=== PATIENT | male | born 1960 | race African-American/Black ===

== ENCOUNTER → 2016-09-27 | Outpatient (CLI) | payer OTHER ==
[~2016-09-27] MED LIST: ASPI81 PO; CACARB500 PO; FOLI1CAP2 PO; FURO40 PO; HYDR-309 PO; HYDR50 PO; LABE200T PO; NIFE10 PO; NIFE60 PO; SEVEC800 PO; SUCR500T PO; VITAD1000 PO
[2016-09-27 19:03] LABS: CALCIUM, TOTAL 7.8 mg/dL (8.8-10.5); CREATININE 3.26 mg/dL (0.60-1.30); PHOSPHORUS 4.3 mg/dL (2.5-4.9); POTASSIUM 3.9 mmol/L (3.5-5.1)
== END | disposition home or self-care (01) ==
LOC: LABMN 18:06
PROVIDERS: ATTEND Internal Medicine Endocrinology, Diabetes & Metabolism
DX: I12.9 Hypertensive chronic kidney disease with stage 1 through stage 4 chronic kidney disease, or unspecified chronic kidney disease (principal); N18.4 Chronic kidney disease, stage 4 (severe); N13.2 Hydronephrosis with renal and ureteral calculous obstruction; R60.0 Localized edema
CPT/HCPCS: 82728; 83540; 83550; 83970

== ENCOUNTER 2016-09-28 19:25 | Inpatient (IN) | payer MEDICAID, OTHER ==
[~2016-09-28] VITALS: Ht 177.8 cm; Wt 84.0 kg
[~2016-09-28 19:25] MED LIST changes: -NIFE60 PO; -SUCR500T PO
[2016-09-28] MEDS ORDERED: SUCR500T PO (19:40)
[2016-09-28] MEDS ORDERED: VITAD1000 PO (19:40)
[2016-09-28 19:42] LABS: GLUCOSE,POINT OF CARE 77 MG/DL (70-110)
[2016-09-28] MEDS ORDERED: CloNIDine HCL 0.2 MG TABLET PO ONE (21:15)
[2016-09-28 21:30] LABS: BASOPHILS # (AUTO) 0.03 K/uL (0.00-0.20); BASOPHILS % (AUTO) 0.7 % (0.0-2.0); EOSINOPHILS # (AUTO) 1.16 K/uL (0.00-0.70); HEMATOCRIT 29.1 % (41-53); HEMOGLOBIN 9.3 g/dL (13.5-17.5); LYMPHOCYTES # (AUTO) 0.8 K/uL (1.0-4.8); LYMPHOCYTES % (AUTO) 18.4 % (22.0-44.0); MEAN CORPUSCULAR HEMOGLOBIN 25.3 pg (26.0-34.0); MEAN CORPUSCULAR HGB CONC 32.1 G/dL (31.0-37.0); MEAN CORPUSCULAR VOLUME 79 fL (80-100); MONOCYTES # (AUTO) 0.4 K/uL (0.1-1.0); MONOCYTES % (AUTO) 8.3 % (2.0-9.0); NEUTROPHILS # (AUTO) 2.1 K/uL (1.8-7.7); NEUTROPHILS % (AUTO) 46.6 % (40.0-70.0); PLATELET COUNT (AUTO) 199 K/uL (150-450); RED BLOOD CELL COUNT(AUTO) 3.69 MIL/uL (4.50-5.90); RED CELL DISTRIBUTION WIDTH 17.3 % (11.5-14.5); WHITE BLOOD COUNT (AUTO) 4.5 K/uL (4.5-11.0)
[2016-09-28 21:32] LABS: EOSINOPHILS % (AUTO) 25.96 % (1.0-6.0)
[2016-09-28 21:39] LABS: CALCIUM, TOTAL 8.1 mg/dL (8.8-10.5); CREATININE 3.08 mg/dL (0.60-1.30); POTASSIUM 3.8 mmol/L (3.5-5.1)
[2016-09-28 21:45] LABS: ALBUMIN 3.1 g/dL (3.4-5.0); BILIRUBIN,TOTAL 0.4 mg/dL (0.1-1.0)
[2016-09-28 21:59] LABS: RBC MORPHOLOGY COMMENT ABNORMAL RBC MORPH
[2016-09-28] MEDS ORDERED: LABETALOL HCL 5 MG/ML 20 ML VIAL IVP ONE (22:45)
[2016-09-28] MEDS ORDERED: MORPHINE SULFATE 4 MG/ML SYRINGE IVP ONE (23:15)
[2016-09-28] MEDS ORDERED: ONDANSETRON HCL 4 MG/2 ML VIAL IVP PRN ×2 (23:30→23:45)
[2016-09-28] MEDS ORDERED: ZOLPIDEM TARTRATE 10 MG TABLET PO PRN (23:30)
[2016-09-28] MEDS ORDERED: ACETAMINOPHEN 325 MG TABLET PO PRN ×2 (23:30→23:45)
[2016-09-28] MEDS: HEPARIN SODIUM,PORCINE 5,000 UNITS/ML VIAL SQ SCH (23:34)
[2016-09-28] MEDS ORDERED: 0.9% SODIUM CHLORIDE 10 ML SYRINGE IVP PRN (23:45)
[2016-09-29] MEDS: MORPHINE SULFATE 2 MG/ML SYRINGE IVP PRN ×3 (02:15→09:39)
[2016-09-29 06:43] LABS: BASOPHILS % (AUTO) 1.2 % (0.0-2.0); HEMATOCRIT 30.2 % (41-53); HEMOGLOBIN 9.4 g/dL (13.5-17.5); LYMPHOCYTES % (AUTO) 21.6 % (22.0-44.0); MEAN CORPUSCULAR HEMOGLOBIN 24.7 pg (26.0-34.0); MEAN CORPUSCULAR VOLUME 79 fL (80-100); MONOCYTES # (AUTO) 0.5 K/uL (0.1-1.0); MONOCYTES % (AUTO) 10.8 % (2.0-9.0); NEUTROPHILS # (AUTO) 1.8 K/uL (1.8-7.7); NEUTROPHILS % (AUTO) 39.1 % (40.0-70.0); PLATELET COUNT (AUTO) 200 K/uL (150-450); RED CELL DISTRIBUTION WIDTH 17.3 % (11.5-14.5); WHITE BLOOD COUNT (AUTO) 4.7 K/uL (4.5-11.0)
[2016-09-29 06:54] LABS: ALBUMIN 2.7 g/dL (3.4-5.0); BILIRUBIN,TOTAL 0.4 mg/dL (0.1-1.0); CREATININE 3.08 mg/dL (0.60-1.30); EOSINOPHILS % (AUTO) 27.3 % (1.0-6.0); POTASSIUM 3.7 mmol/L (3.5-5.1); TOTAL PROTEIN, SERUM 6.4 g/dL (6.4-8.2)
[2016-09-29 08:07] LABS: GLUCOSE,POINT OF CARE 83 MG/DL (70-110)
[2016-09-29 08:14] LABS: APPEARANCE,URINE CLEAR (CLEAR); GLUCOSE, URINE (UA) NEGATIVE (NEGATIVE); KETONES,URINE NEGATIVE (NEGATIVE); LEUKOCYTE ESTERASE ,URINE NEGATIVE (NEGATIVE); OCCULT BLOOD,URINE MODERATE (NEGATIVE); PROTEIN,URINE SEE CONFIRM (NEGATIVE)
[2016-09-29] MEDS: VITAMIN B COMP/VIT C/FOLIC ACID CAPSULE PO SCH (08:19)
[2016-09-29] MEDS: HydrALAZINE HCL 50 MG TABLET PO SCH ×3 (08:19→22:10)
[2016-09-29] MEDS: LABETALOL HCL 200 MG TABLET PO SCH ×3 (08:19→22:09)
[2016-09-29] MEDS: CHOLECALCIFEROL (VIT D3) 2,000 UNITS TABLET PO SCH (08:19)
[2016-09-29] MEDS: PANTOPRAZOLE SODIUM 40 MG DR TABLET PO SCH (08:20)
[2016-09-29] MEDS: SEVELAMER CARBONATE 800 MG TABLET PO SCH ×3 (08:20→18:38)
[2016-09-29] MEDS: ASPIRIN 81 MG CHEWABLE TABLET PO SCH (08:20)
[2016-09-29] MEDS: FUROSEMIDE 40 MG TABLET PO SCH ×2 (08:20→22:10)
[2016-09-29] MEDS: HEPARIN SODIUM,PORCINE 5,000 UNITS/ML VIAL SQ SCH ×2 (08:21→22:12)
[2016-09-29 08:35] LABS: WBC,URINE 0-2 /HPF (0-5)
[2016-09-29 08:36] LABS: SQUAMOUS EPITHELIAL CELL,UR Rare /LPF (None Seen); SULFOSALICYLIC ACID,URINE 3+ (Negative)
[2016-09-29 08:58] LABS: RBC MORPHOLOGY COMMENT ABNORMAL RBC MORPH
[2016-09-29] MEDS ORDERED: NIFEdipine 60 MG ER TABLET PO SCH (09:00)
[2016-09-29] MEDS ORDERED: NIFE60TA71 PO (10:47)
[2016-09-29 13:16] LABS: GLUCOSE,POINT OF CARE 109 MG/DL (70-110)
[2016-09-29] MEDS: OxyCODONE HCL/ACETAMINOPHEN 5-325 MG TABLET PO PRN (13:41)
[2016-09-29] MEDS ORDERED: CloNIDine HCL 0.1 MG TABLET PO PRN (15:00)
[2016-09-29 16:37] LABS: GLUCOSE,POINT OF CARE 96 MG/DL (70-110)
[2016-09-29 18:01] VITALS: BP 142/81
[2016-09-29 19:28] VITALS: BP 128/73
[2016-09-29 23:28] VITALS: BP 128/76
[2016-09-29] MEDS: AmLODIPine BESYLATE 10 MG TABLET PO SCH (23:39)
[2016-09-30 04:36] VITALS: BP 112/76
[2016-09-30] MEDS: MORPHINE SULFATE 2 MG/ML SYRINGE IVP PRN ×4 (06:01→19:38)
[2016-09-30 06:12] LABS: BASOPHILS % (AUTO) 1.2 % (0.0-2.0); HEMATOCRIT 30.1 % (41-53); HEMOGLOBIN 9.5 g/dL (13.5-17.5); LYMPHOCYTES # (AUTO) 0.8 K/uL (1.0-4.8); LYMPHOCYTES % (AUTO) 16.6 % (22.0-44.0); MEAN CORPUSCULAR HEMOGLOBIN 25.2 pg (26.0-34.0); MEAN CORPUSCULAR HGB CONC 31.5 G/dL (31.0-37.0); MEAN CORPUSCULAR VOLUME 80 fL (80-100); MONOCYTES # (AUTO) 0.4 K/uL (0.1-1.0); NEUTROPHILS # (AUTO) 2.1 K/uL (1.8-7.7); PLATELET COUNT (AUTO) 204 K/uL (150-450); RED BLOOD CELL COUNT(AUTO) 3.77 MIL/uL (4.50-5.90); RED CELL DISTRIBUTION WIDTH 16.7 % (11.5-14.5); WHITE BLOOD COUNT (AUTO) 4.6 K/uL (4.5-11.0)
[2016-09-30 06:55] LABS: EOSINOPHILS % (AUTO) 28.2 % (1.0-6.0)
[2016-09-30 07:05] LABS: ALBUMIN 2.9 g/dL (3.4-5.0); BILIRUBIN,TOTAL 0.3 mg/dL (0.1-1.0); CALCIUM, TOTAL 7.9 mg/dL (8.8-10.5); CREATININE 3.28 mg/dL (0.60-1.30); POTASSIUM 3.9 mmol/L (3.5-5.1); TOTAL PROTEIN, SERUM 6.6 g/dL (6.4-8.2)
[2016-09-30 07:32] VITALS: BP 148/76
[2016-09-30] MEDS: ASPIRIN 81 MG CHEWABLE TABLET PO SCH (08:29)
[2016-09-30] MEDS: SEVELAMER CARBONATE 800 MG TABLET PO SCH ×3 (08:29→18:30)
[2016-09-30] MEDS: HydrALAZINE HCL 50 MG TABLET PO SCH ×3 (08:29→20:44)
[2016-09-30] MEDS: FUROSEMIDE 40 MG TABLET PO SCH ×2 (08:30→20:49)
[2016-09-30] MEDS: PANTOPRAZOLE SODIUM 40 MG DR TABLET PO SCH (08:31)
[2016-09-30] MEDS: CHOLECALCIFEROL (VIT D3) 2,000 UNITS TABLET PO SCH (08:31)
[2016-09-30] MEDS: AmLODIPine BESYLATE 10 MG TABLET PO SCH ×2 (08:31→20:46)
[2016-09-30] MEDS: LABETALOL HCL 200 MG TABLET PO SCH ×3 (08:31→20:44)
[2016-09-30] MEDS: VITAMIN B COMP/VIT C/FOLIC ACID CAPSULE PO SCH (08:32)
[2016-09-30] MEDS: HEPARIN SODIUM,PORCINE 5,000 UNITS/ML VIAL SQ SCH ×2 (08:32→20:45)
[2016-09-30] MEDS: OxyCODONE HCL/ACETAMINOPHEN 5-325 MG TABLET PO PRN (09:12)
[2016-09-30 11:56] VITALS: BP 146/78
[2016-09-30 15:32] VITALS: BP 159/88
[2016-09-30 19:27] VITALS: BP 145/78
[2016-09-30 23:35] VITALS: BP 140/72
[2016-10-01 03:29] VITALS: BP 143/81
[2016-10-01] MEDS: MORPHINE SULFATE 2 MG/ML SYRINGE IVP PRN ×2 (03:39→12:14)
[2016-10-01 06:37] LABS: ALBUMIN 2.7 g/dL (3.4-5.0); BILIRUBIN,TOTAL 0.3 mg/dL (0.1-1.0); CALCIUM, TOTAL 7.9 mg/dL (8.8-10.5); CREATININE 3.36 mg/dL (0.60-1.30); POTASSIUM 4.1 mmol/L (3.5-5.1); TOTAL PROTEIN, SERUM 6.2 g/dL (6.4-8.2)
[2016-10-01 07:13] LABS: BASOPHILS % (AUTO) 1.1 % (0.0-2.0); EOSINOPHILS % (AUTO) 22.8 % (1.0-6.0); HEMATOCRIT 28.9 % (41-53); LYMPHOCYTES # (AUTO) 0.8 K/uL (1.0-4.8); LYMPHOCYTES % (AUTO) 15.8 % (22.0-44.0); MEAN CORPUSCULAR HEMOGLOBIN 24.9 pg (26.0-34.0); MEAN CORPUSCULAR HGB CONC 31.2 G/dL (31.0-37.0); MEAN CORPUSCULAR VOLUME 80 fL (80-100); MONOCYTES # (AUTO) 0.6 K/uL (0.1-1.0); MONOCYTES % (AUTO) 11.7 % (2.0-9.0); NEUTROPHILS # (AUTO) 2.4 K/uL (1.8-7.7); NEUTROPHILS % (AUTO) 48.6 % (40.0-70.0); PLATELET COUNT (AUTO) 202 K/uL (150-450); RED BLOOD CELL COUNT(AUTO) 3.63 MIL/uL (4.50-5.90)
[2016-10-01 08:03] VITALS: BP 157/69
[2016-10-01 08:07] LABS: RBC MORPHOLOGY COMMENT ABNORMAL RBC MORPH
[2016-10-01] MEDS: AmLODIPine BESYLATE 10 MG TABLET PO SCH (08:26)
[2016-10-01] MEDS: SEVELAMER CARBONATE 800 MG TABLET PO SCH ×2 (08:26→12:14)
[2016-10-01] MEDS: PANTOPRAZOLE SODIUM 40 MG DR TABLET PO SCH (08:26)
[2016-10-01] MEDS: FUROSEMIDE 40 MG TABLET PO SCH (08:27)
[2016-10-01] MEDS: VITAMIN B COMP/VIT C/FOLIC ACID CAPSULE PO SCH (08:27)
[2016-10-01] MEDS: LABETALOL HCL 200 MG TABLET PO SCH (08:27)
[2016-10-01] MEDS: ASPIRIN 81 MG CHEWABLE TABLET PO SCH (08:28)
[2016-10-01] MEDS: HydrALAZINE HCL 50 MG TABLET PO SCH (08:28)
[2016-10-01] MEDS: HEPARIN SODIUM,PORCINE 5,000 UNITS/ML VIAL SQ SCH (08:29)
[2016-10-01] MEDS: CHOLECALCIFEROL (VIT D3) 2,000 UNITS TABLET PO SCH (08:30)
[2016-10-01 11:35] VITALS: BP 145/74
== END 2016-10-01 14:35 | disposition home or self-care (01) | DRG 194 ==
LOC: EMS 19:26 → 5S 09-29 16:15
PROVIDERS: ADMIT Hospitalist; ATTEND Hospitalist
DX: I13.2 Hypertensive heart and chronic kidney disease with heart failure and with stage 5 chronic kidney disease, or end stage renal disease (principal); E11.22 Type 2 diabetes mellitus with diabetic chronic kidney disease; E44.0 Moderate protein-calorie malnutrition; N18.4 Chronic kidney disease, stage 4 (severe); N18.6 End stage renal disease; I20.0 Unstable angina; E88.09 Other disorders of plasma-protein metabolism, not elsewhere classified; I50.32 Chronic diastolic (congestive) heart failure; M48.06 Spinal stenosis, lumbar region; I16.1 Hypertensive emergency; D63.8 Anemia in other chronic diseases classified elsewhere; M47.896 Other spondylosis, lumbar region; Z68.26 Body mass index [BMI] 26.0-26.9, adult; Z79.82 Long term (current) use of aspirin
CPT/HCPCS: 72131; 72148; 74022; 76770; 82962; 93005; 96372; 96374; 96375; 96376; 99285; J1644; J2270; J3490

== ENCOUNTER 2016-10-27 12:20 | Inpatient (IN) | payer MEDICAID ==
[~2016-10-27] VITALS: Ht 182.9 cm; Wt 84.9 kg
[~2016-10-27 12:20] MED LIST changes: +HYDR-2924 PO; -HYDR50 PO; -NIFE10 PO; +SUCR500T PO
[2016-10-27 12:41] LABS: GLUCOSE,POINT OF CARE 127 MG/DL (70-110)
[2016-10-27] MEDS ORDERED: NIFE10 PO (12:44)
[2016-10-27] MEDS ORDERED: CloNIDine HCL 0.2 MG TABLET PO ONE (13:30)
[2016-10-27] MEDS ORDERED: NIFE60TA71 PO (13:33)
[2016-10-27 13:36] LABS: BASOPHILS % (AUTO) 0.6 % (0.0-2.0); HEMATOCRIT 33.3 % (41-53); HEMOGLOBIN 10.4 g/dL (13.5-17.5); LYMPHOCYTES # (AUTO) 0.9 K/uL (1.0-4.8); LYMPHOCYTES % (AUTO) 13.2 % (22.0-44.0); MEAN CORPUSCULAR HEMOGLOBIN 24.9 pg (26.0-34.0); MEAN CORPUSCULAR HGB CONC 31.2 G/dL (31.0-37.0); MEAN CORPUSCULAR VOLUME 80 fL (80-100); MONOCYTES # (AUTO) 0.5 K/uL (0.1-1.0); MONOCYTES % (AUTO) 8.2 % (2.0-9.0); NEUTROPHILS # (AUTO) 4.3 K/uL (1.8-7.7); PLATELET COUNT (AUTO) 192 K/uL (150-450); RED BLOOD CELL COUNT(AUTO) 4.17 MIL/uL (4.50-5.90); RED CELL DISTRIBUTION WIDTH 17.3 % (11.5-14.5); WHITE BLOOD COUNT (AUTO) 6.6 K/uL (4.5-11.0)
[2016-10-27 13:48] LABS: ANION GAP 12 mmol/L (8-16); CALCIUM, TOTAL 8.2 mg/dL (8.8-10.5); CARBON DIOXIDE 26 mmol/L (22-29); CHLORIDE 104 mmol/L (98-107); CREATININE 3.95 mg/dL (0.60-1.30); GLOMERULAR FILTR. RATE CALC 19 mL/min (>60); POTASSIUM 4.1 mmol/L (3.5-5.1); SODIUM SERUM 142 mmol/L (136-145); UREA NITROGEN, BLOOD 37 mg/dL (7-18)
[2016-10-27 13:50] LABS: PROTHROMBIN TIME 10.5 SEC (9.4-11.6)
[2016-10-27 14:03] LABS: B-TYPE NATRIURETIC PEPTIDE 1300 pg/mL (0-100)
[2016-10-27 14:12] LABS: ALANINE AMINOTRANSFERASE 60 U/L (12-78); ALBUMIN 3.2 g/dL (3.4-5.0); ASPARTATE AMINOTRANSFERASE 33 U/L (15-37); BILIRUBIN,TOTAL 0.5 mg/dL (0.1-1.0); CREATINE KINASE MB 2.7 ng/mL (0-5); CREATINE KINASE, TOTAL 419 U/L (39-308); TOTAL PROTEIN, SERUM 7.6 g/dL (6.4-8.2)
[2016-10-27] MEDS ORDERED: NITROGLYCERIN 2% (1 GM=INCH) PACKET TP ONE (15:00)
[2016-10-27] MEDS ORDERED: FUROSEMIDE 40 MG/4 ML VIAL IVP ONE (15:00)
[2016-10-27 15:01] LABS: APPEARANCE,URINE CLEAR (CLEAR); GLUCOSE, URINE (UA) NEGATIVE (NEGATIVE); KETONES,URINE NEGATIVE (NEGATIVE); LEUKOCYTE ESTERASE ,URINE NEGATIVE (NEGATIVE); OCCULT BLOOD,URINE MODERATE (NEGATIVE); PH,URINE 7.5 (5.0-8.0); PROTEIN,URINE SEE CONFIRM (NEGATIVE)
[2016-10-27] MEDS ORDERED: NITROPRUSSIDE SODIUM 50 MG in DEXTROSE 5%-WATER 248 ML IV PRN (15:15)
[2016-10-27 15:19] LABS: ADD UA MICROSCOPIC YES
[2016-10-27 15:27] LABS: SULFOSALICYLIC ACID,URINE 3+ (Negative)
[2016-10-27 15:28] LABS: WBC,URINE 0-2 /HPF (0-5)
[2016-10-27] MEDS ORDERED: BISACODYL 10 MG RECTAL RECTAL SUPPOSITORY PR PRN (15:45)
[2016-10-27] MEDS ORDERED: ACETAMINOPHEN 325 MG TABLET PO PRN (15:45)
[2016-10-27] MEDS ORDERED: MAGNESIUM HYDROXIDE SUSPENSION 30 ML UDCUP PO PRN (15:45)
[2016-10-27] MEDS ORDERED: ZOLPIDEM TARTRATE 5 MG TABLET PO PRN (15:45)
[2016-10-27] MEDS ORDERED: ONDANSETRON HCL 4 MG/2 ML VIAL IVP PRN (15:45)
[2016-10-27] MEDS ORDERED: MORPHINE SULFATE 2 MG/ML SYRINGE IVP PRN (15:45)
[2016-10-27] MEDS: HydrALAZINE HCL 50 MG TABLET PO SCH ×2 (16:23→20:50)
[2016-10-27] MEDS: LABETALOL HCL 200 MG TABLET PO SCH ×2 (16:28→22:20)
[2016-10-27] MEDS: HEPARIN SODIUM,PORCINE 5,000 UNITS/ML VIAL SQ SCH (16:52)
[2016-10-27] MEDS ORDERED: HYDROmorphone 2 MG/ML SYRINGE IVP ONE (17:15)
[2016-10-27] MEDS ORDERED: LABETALOL HCL 5 MG/ML 20 ML VIAL IVP ONE (17:15)
[2016-10-27 17:52] LABS: GLUCOSE,POINT OF CARE 103 MG/DL (70-110)
[2016-10-27] MEDS: SEVELAMER CARBONATE 800 MG TABLET PO SCH (18:50)
[2016-10-27] MEDS: HYDROCODONE/ACETAMINOPHEN 5-325 MG TABLET PO PRN (20:50)
[2016-10-27] MEDS: DOCUSATE SODIUM 100 MG CAPSULE PO SCH (20:50)
[2016-10-27] MEDS: FUROSEMIDE 40 MG/4 ML VIAL IVP SCH (20:52)
[2016-10-27 22:37] VITALS: BP 187/99
[2016-10-28] VITALS (7 sets, daily range): BP systolic 136–198; BP diastolic 72–108
[2016-10-28] MEDS: HEPARIN SODIUM,PORCINE 5,000 UNITS/ML VIAL SQ SCH ×3 (01:15→16:24)
[2016-10-28] MEDS: LABETALOL HCL 200 MG in DEXTROSE 5%-WATER 160 ML IV PRN ×4 (01:51→10:43)
[2016-10-28] MEDS: HYDROCODONE/ACETAMINOPHEN 5-325 MG TABLET PO PRN ×2 (02:11→13:10)
[2016-10-28 05:30] LABS: CALCIUM, TOTAL 7.8 mg/dL (8.8-10.5); CREATININE 3.79 mg/dL (0.60-1.30); PHOSPHORUS 4.4 mg/dL (2.5-4.9); POTASSIUM 4.1 mmol/L (3.5-5.1)
[2016-10-28] MEDS: FUROSEMIDE 40 MG/4 ML VIAL IVP SCH ×2 (06:28→20:57)
[2016-10-28] MEDS: DOCUSATE SODIUM 100 MG CAPSULE PO SCH ×2 (08:09→21:00)
[2016-10-28] MEDS: PANTOPRAZOLE SODIUM 40 MG DR TABLET PO SCH (08:09)
[2016-10-28] MEDS: SEVELAMER CARBONATE 800 MG TABLET PO SCH ×3 (08:09→16:24)
[2016-10-28] MEDS: CHOLECALCIFEROL (VIT D3) 1,000 UNITS TABLET PO SCH (08:10)
[2016-10-28] MEDS: ASPIRIN 81 MG CHEWABLE TABLET PO SCH (08:10)
[2016-10-28] MEDS: HydrALAZINE HCL 50 MG TABLET PO SCH ×3 (08:13→20:56)
[2016-10-28] MEDS ORDERED: NIFEdipine 60 MG ER TABLET PO SCH (09:00)
[2016-10-28] MEDS ORDERED: SUCROFERRIC OXYHYDROXIDE 500 MG CHEW SCH (09:00)
[2016-10-28] MEDS: AmLODIPine BESYLATE 10 MG TABLET PO SCH (10:40)
[2016-10-28] MEDS: LABETALOL HCL 200 MG TABLET PO SCH (16:24)
[2016-10-29] VITALS (9 sets, daily range): BP systolic 125–173; BP diastolic 71–89
[2016-10-29] MEDS: LABETALOL HCL 200 MG TABLET PO SCH ×4 (00:42→23:24)
[2016-10-29] MEDS: HEPARIN SODIUM,PORCINE 5,000 UNITS/ML VIAL SQ SCH ×4 (00:43→23:24)
[2016-10-29] MEDS: HYDROCODONE/ACETAMINOPHEN 5-325 MG TABLET PO PRN ×3 (01:07→20:13)
[2016-10-29 05:44] LABS: CALCIUM, TOTAL 7.9 mg/dL (8.8-10.5); CREATININE 4.08 mg/dL (0.60-1.30); PHOSPHORUS 5.4 mg/dL (2.5-4.9); POTASSIUM 3.8 mmol/L (3.5-5.1)
[2016-10-29 06:18] LABS: BASOPHILS % (AUTO) 1.1 % (0.0-2.0); HEMATOCRIT 29.9 % (41-53); HEMOGLOBIN 9.3 g/dL (13.5-17.5); LYMPHOCYTES # (AUTO) 0.9 K/uL (1.0-4.8); MEAN CORPUSCULAR HEMOGLOBIN 24.9 pg (26.0-34.0); MEAN CORPUSCULAR VOLUME 80 fL (80-100); MONOCYTES # (AUTO) 0.5 K/uL (0.1-1.0); MONOCYTES % (AUTO) 9.4 % (2.0-9.0); NEUTROPHILS # (AUTO) 2.8 K/uL (1.8-7.7); PLATELET COUNT (AUTO) 202 K/uL (150-450); RED BLOOD CELL COUNT(AUTO) 3.71 MIL/uL (4.50-5.90); RED CELL DISTRIBUTION WIDTH 16.6 % (11.5-14.5); WHITE BLOOD COUNT (AUTO) 5.4 K/uL (4.5-11.0)
[2016-10-29 06:45] LABS: EOSINOPHILS % (AUTO) 21.5 % (1.0-6.0)
[2016-10-29] MEDS: AmLODIPine BESYLATE 10 MG TABLET PO SCH (09:02)
[2016-10-29] MEDS: FUROSEMIDE 40 MG/4 ML VIAL IVP SCH ×2 (09:02→20:13)
[2016-10-29] MEDS: DOCUSATE SODIUM 100 MG CAPSULE PO SCH ×2 (09:02→20:13)
[2016-10-29] MEDS: PANTOPRAZOLE SODIUM 40 MG DR TABLET PO SCH (09:02)
[2016-10-29] MEDS: CHOLECALCIFEROL (VIT D3) 1,000 UNITS TABLET PO SCH (09:02)
[2016-10-29] MEDS: SEVELAMER CARBONATE 800 MG TABLET PO SCH ×3 (09:03→20:13)
[2016-10-29] MEDS: ASPIRIN 81 MG CHEWABLE TABLET PO SCH (09:03)
[2016-10-29] MEDS: HydrALAZINE HCL 50 MG TABLET PO SCH ×3 (09:04→20:12)
[2016-10-30 04:46] VITALS: BP 152/79
[2016-10-30 06:24] LABS: BASOPHILS % (AUTO) 1.2 % (0.0-2.0); HEMATOCRIT 30.7 % (41-53); HEMOGLOBIN 9.8 g/dL (13.5-17.5); LYMPHOCYTES # (AUTO) 0.8 K/uL (1.0-4.8); MEAN CORPUSCULAR HEMOGLOBIN 25.4 pg (26.0-34.0); MEAN CORPUSCULAR HGB CONC 31.7 G/dL (31.0-37.0); MEAN CORPUSCULAR VOLUME 80 fL (80-100); MONOCYTES # (AUTO) 0.5 K/uL (0.1-1.0); MONOCYTES % (AUTO) 9.7 % (2.0-9.0); NEUTROPHILS # (AUTO) 2.4 K/uL (1.8-7.7); NEUTROPHILS % (AUTO) 50.2 % (40.0-70.0); PLATELET COUNT (AUTO) 218 K/uL (150-450); RED BLOOD CELL COUNT(AUTO) 3.84 MIL/uL (4.50-5.90); RED CELL DISTRIBUTION WIDTH 16.6 % (11.5-14.5); WHITE BLOOD COUNT (AUTO) 4.8 K/uL (4.5-11.0)
[2016-10-30 07:11] LABS: CREATININE 3.98 mg/dL (0.60-1.30); PHOSPHORUS 5.6 mg/dL (2.5-4.9); POTASSIUM 3.8 mmol/L (3.5-5.1)
[2016-10-30 07:27] LABS: EOSINOPHILS % (AUTO) 21.9 % (1.0-6.0)
[2016-10-30 07:51] VITALS: BP 154/85
[2016-10-30] MEDS: SEVELAMER CARBONATE 800 MG TABLET PO SCH ×2 (09:00→12:34)
[2016-10-30] MEDS: AmLODIPine BESYLATE 10 MG TABLET PO SCH (09:00)
[2016-10-30] MEDS: HydrALAZINE HCL 50 MG TABLET PO SCH ×2 (09:00→15:48)
[2016-10-30] MEDS: LABETALOL HCL 200 MG TABLET PO SCH ×2 (09:00→15:48)
[2016-10-30] MEDS: CHOLECALCIFEROL (VIT D3) 1,000 UNITS TABLET PO SCH (09:00)
[2016-10-30] MEDS: HYDROCODONE/ACETAMINOPHEN 5-325 MG TABLET PO PRN (09:00)
[2016-10-30] MEDS: DOCUSATE SODIUM 100 MG CAPSULE PO SCH (09:00)
[2016-10-30] MEDS: PANTOPRAZOLE SODIUM 40 MG DR TABLET PO SCH (09:00)
[2016-10-30] MEDS: HEPARIN SODIUM,PORCINE 5,000 UNITS/ML VIAL SQ SCH ×2 (09:01→15:48)
[2016-10-30] MEDS: FUROSEMIDE 40 MG/4 ML VIAL IVP SCH (09:01)
[2016-10-30] MEDS: ASPIRIN 81 MG CHEWABLE TABLET PO SCH (09:01)
[2016-10-30 11:16] VITALS: BP 138/76
[2016-10-30] MEDS ORDERED: NIFE30TA5 PO (11:46)
[2016-10-30 16:13] VITALS: BP 136/76
== END 2016-10-30 19:00 | disposition home or self-care (01) | DRG 199 ==
LOC: EMS 12:22 → ICU 19:55 → 6N 10-29 13:35
PROVIDERS: ADMIT Internal Medicine; ATTEND Internal Medicine
DX: I16.0 Hypertensive urgency (principal); I50.33 Acute on chronic diastolic (congestive) heart failure; E11.22 Type 2 diabetes mellitus with diabetic chronic kidney disease; N18.6 End stage renal disease; E55.9 Vitamin D deficiency, unspecified; I13.0 Hypertensive heart and chronic kidney disease with heart failure and stage 1 through stage 4 chronic kidney disease, or unspecified chronic kidney disease; D64.9 Anemia, unspecified; R80.9 Proteinuria, unspecified; Z98.890 Other specified postprocedural states; Z79.84 Long term (current) use of oral hypoglycemic drugs; Z79.82 Long term (current) use of aspirin; Z79.899 Other long term (current) drug therapy; Z99.2 Dependence on renal dialysis
CPT/HCPCS: 70450; 82962; 83735; 84100; 87081; 93005; 96374; 96375; 99291; J1170; J1644; J1940; J2270; J3490; J7060

== ENCOUNTER → 2017-01-14 | Outpatient (CLI) | payer OTHER ==
[~2017-01-14] MED LIST changes: -CACARB500 PO; -FOLI1CAP2 PO; -HYDR-309 PO; +NIFE30TA5 PO
[2017-01-14 17:42] LABS: ADD UA MICROSCOPIC YES; APPEARANCE,URINE CLEAR (CLEAR); GLUCOSE, URINE (UA) NEGATIVE (NEGATIVE); KETONES,URINE NEGATIVE (NEGATIVE); LEUKOCYTE ESTERASE ,URINE NEGATIVE (NEGATIVE); OCCULT BLOOD,URINE NEGATIVE (NEGATIVE); PH,URINE 6.5 (5.0-8.0); PROTEIN,URINE SEE CONFIRM (NEGATIVE)
[2017-01-14 17:43] LABS: BASOPHILS # (AUTO) 0.03 K/uL (0.00-0.20); BASOPHILS % (AUTO) 0.5 % (0.0-2.0); EOSINOPHILS # (AUTO) 0.69 K/uL (0.00-0.70); EOSINOPHILS % (AUTO) 13.88 % (1.0-6.0); HEMATOCRIT 27.5 % (41-53); HEMOGLOBIN 8.6 g/dL (13.5-17.5); LYMPHOCYTES # (AUTO) 0.7 K/uL (1.0-4.8); LYMPHOCYTES % (AUTO) 13.2 % (22.0-44.0); MEAN CORPUSCULAR HEMOGLOBIN 25.6 pg (26.0-34.0); MEAN CORPUSCULAR HGB CONC 31.3 G/dL (31.0-37.0); MEAN CORPUSCULAR VOLUME 82 fL (80-100); MONOCYTES # (AUTO) 0.5 K/uL (0.1-1.0); MONOCYTES % (AUTO) 9.9 % (2.0-9.0); NEUTROPHILS # (AUTO) 3.1 K/uL (1.8-7.7); NEUTROPHILS % (AUTO) 62.5 % (40.0-70.0); PLATELET COUNT (AUTO) 191 K/uL (150-450); RED BLOOD CELL COUNT(AUTO) 3.36 MIL/uL (4.50-5.90); RED CELL DISTRIBUTION WIDTH 16.3 % (11.5-14.5)
[2017-01-14 17:50] LABS: ALBUMIN 3.1 g/dL (3.4-5.0); CALCIUM, TOTAL 8.3 mg/dL (8.8-10.5); CREATININE 4.61 mg/dL (0.60-1.30); PHOSPHORUS 4.3 mg/dL (2.5-4.9); POTASSIUM 4.2 mmol/L (3.5-5.1)
[2017-01-14 18:08] LABS: RBC,URINE 0-2 /HPF (0-2); SULFOSALICYLIC ACID,URINE 2+ (Negative); WBC,URINE 0-2 /HPF (0-5)
== END | disposition home or self-care (01) ==
LOC: LABPV 14:49
PROVIDERS: ATTEND Internal Medicine Endocrinology, Diabetes & Metabolism
DX: I12.9 Hypertensive chronic kidney disease with stage 1 through stage 4 chronic kidney disease, or unspecified chronic kidney disease (principal); N18.4 Chronic kidney disease, stage 4 (severe); N13.2 Hydronephrosis with renal and ureteral calculous obstruction; D63.1 Anemia in chronic kidney disease

== ENCOUNTER 2017-03-07 19:03 | Emergency (ER) | payer MEDICAID ==
[~2017-03-07] VITALS: Ht 172.7 cm; Wt 90.9 kg
[2017-03-07] MEDS ORDERED: FURO80 PO (19:58)
[2017-03-07] MEDS ORDERED: HYDR-2924 PO (19:58)
[2017-03-07] MEDS ORDERED: SODI454P2 PO (19:58)
[2017-03-07] MEDS ORDERED: HYDROCODONE/ACETAMINOPHEN 5-325 MG TABLET PO ONE ×2 (21:00→22:15)
[2017-03-07 21:15] LABS: BASOPHILS % (AUTO) 0.1 % (0.0-2.0); EOSINOPHILS # (AUTO) 0.54 K/uL (0.00-0.70); EOSINOPHILS % (AUTO) 10.43 % (1.0-6.0); HEMATOCRIT 26.1 % (41-53); HEMOGLOBIN 8.5 g/dL (13.5-17.5); LYMPHOCYTES # (AUTO) 0.6 K/uL (1.0-4.8); LYMPHOCYTES % (AUTO) 10.6 % (22.0-44.0); MEAN CORPUSCULAR HEMOGLOBIN 24.8 pg (26.0-34.0); MEAN CORPUSCULAR HGB CONC 32.3 G/dL (31.0-37.0); MEAN CORPUSCULAR VOLUME 77 fL (80-100); MONOCYTES # (AUTO) 0.5 K/uL (0.1-1.0); MONOCYTES % (AUTO) 9.5 % (2.0-9.0); NEUTROPHILS # (AUTO) 3.6 K/uL (1.8-7.7); NEUTROPHILS % (AUTO) 69.4 % (40.0-70.0); PLATELET COUNT (AUTO) 209 K/uL (150-450); RED CELL DISTRIBUTION WIDTH 17.1 % (11.5-14.5); WHITE BLOOD COUNT (AUTO) 5.2 K/uL (4.5-11.0)
[2017-03-07 21:22] LABS: CREATININE 4.65 mg/dL (0.60-1.30)
[2017-03-07 21:26] LABS: APPEARANCE,URINE CLEAR (CLEAR); GLUCOSE, URINE (UA) NEGATIVE (NEGATIVE); KETONES,URINE NEGATIVE (NEGATIVE); LEUKOCYTE ESTERASE ,URINE NEGATIVE (NEGATIVE); OCCULT BLOOD,URINE NEGATIVE (NEGATIVE); PH,URINE 7.5 (5.0-8.0); PROTEIN,URINE SEE CONFIRM (NEGATIVE)
[2017-03-07 21:31] LABS: RBC MORPHOLOGY COMMENT ABNORMAL RBC MORPH
[2017-03-07 21:37] LABS: RBC,URINE None Seen /HPF (0-2); SULFOSALICYLIC ACID,URINE 2+ (Negative); WBC,URINE 0-2 /HPF (0-5)
[2017-03-07 22:02] VITALS: BP 147/89
== END 2017-03-07 22:29 | disposition home or self-care (01) ==
LOC: EMS 19:06
DX: M54.5 Low back pain (principal); I12.9 Hypertensive chronic kidney disease with stage 1 through stage 4 chronic kidney disease, or unspecified chronic kidney disease; N18.9 Chronic kidney disease, unspecified; E11.22 Type 2 diabetes mellitus with diabetic chronic kidney disease; R60.0 Localized edema; Z79.82 Long term (current) use of aspirin; Z99.2 Dependence on renal dialysis; Z79.899 Other long term (current) drug therapy
CPT/HCPCS: 99284

== ENCOUNTER → 2017-05-13 | Outpatient (CLI) | payer OTHER ==
[~2017-05-13] MED LIST changes: +ASPI81TA33 PO; +FOLI1CAP2 PO; -FURO40 PO; +FURO80 PO; +ISOS30TA6 PO; +LABE100 PO; +NIFE90TA38 PO; -SEVEC800 PO; +SODI454P2 PO; +VALS160T2 PO; -VITAD1000 PO
[2017-05-13 11:42] LABS: HEMATOCRIT 23.3 % (41-53); HEMOGLOBIN 7.5 g/dL (13.5-17.5); MEAN CORPUSCULAR HEMOGLOBIN 23.4 pg (26.0-34.0); MEAN CORPUSCULAR VOLUME 73 fL (80-100); PLATELET COUNT (AUTO) 195 K/uL (150-450); RED BLOOD CELL COUNT(AUTO) 3.19 MIL/uL (4.50-5.90); RED CELL DISTRIBUTION WIDTH 18.6 % (11.5-14.5); WHITE BLOOD COUNT (AUTO) 4.8 K/uL (4.5-11.0)
[2017-05-13 11:43] LABS: ALBUMIN 2.9 g/dL (3.4-5.0); CALCIUM, TOTAL 8.2 mg/dL (8.8-10.5); CREATININE 5.29 mg/dL (0.60-1.30); PHOSPHORUS 4.7 mg/dL (2.5-4.9); POTASSIUM 4.4 mmol/L (3.5-5.1)
[2017-05-13 13:06] LABS: APPEARANCE,URINE CLEAR (CLEAR); GLUCOSE, URINE (UA) NEGATIVE (NEGATIVE); KETONES,URINE NEGATIVE (NEGATIVE); LEUKOCYTE ESTERASE ,URINE NEGATIVE (NEGATIVE); OCCULT BLOOD,URINE NEGATIVE (NEGATIVE); PH,URINE 7.5 (5.0-8.0); PROTEIN,URINE SEE CONFIRM (NEGATIVE)
[2017-05-13 13:44] LABS: BAND NEUTROPHILS % (MANUAL) 1 % (1-5); EOSINOPHILS % (MANUAL) 3 % (1-6); LYMPHOCYTES % (MANUAL) 16 % (22-44); RBC MORPHOLOGY COMMENT ABNORMAL R; TOTAL CELLS COUNTED 100
[2017-05-13 13:58] LABS: ADD UA MICROSCOPIC YES
[2017-05-13 13:59] LABS: RBC,URINE 0-2 /HPF (0-2); SULFOSALICYLIC ACID,URINE 3+ (Negative); WBC,URINE 0-2 /HPF (0-5)
[2017-05-13 14:00] LABS: SQUAMOUS EPITHELIAL CELL,UR Rare /LPF (None Seen)
== END | disposition home or self-care (01) ==
LOC: LABPV 09:55
PROVIDERS: ATTEND Hospitalist
DX: I12.9 Hypertensive chronic kidney disease with stage 1 through stage 4 chronic kidney disease, or unspecified chronic kidney disease (principal); N18.4 Chronic kidney disease, stage 4 (severe); N13.2 Hydronephrosis with renal and ureteral calculous obstruction; R60.0 Localized edema

== ENCOUNTER 2017-05-17 13:02 | Inpatient (IN) | payer MEDICAID ==
[~2017-05-17] VITALS: Ht 182.9 cm; Wt 81.4 kg
[~2017-05-17 13:02] MED LIST changes: -ASPI81TA33 PO; -FOLI1CAP2 PO; -ISOS30TA6 PO; -LABE100 PO; -NIFE90TA38 PO; -VALS160T2 PO
[2017-05-17] MEDS ORDERED: HYDR-2924 PO (13:18)
[2017-05-17 13:33] LABS: GLUCOSE,POINT OF CARE 149 MG/DL (70-110)
[2017-05-17 15:02] LABS: APPEARANCE,URINE CLEAR (CLEAR); GLUCOSE, URINE (UA) NEGATIVE (NEGATIVE); KETONES,URINE NEGATIVE (NEGATIVE); LEUKOCYTE ESTERASE ,URINE NEGATIVE (NEGATIVE); OCCULT BLOOD,URINE NEGATIVE (NEGATIVE); PH,URINE 7.5 (5.0-8.0); PROTEIN,URINE SEE CONFIRM (NEGATIVE)
[2017-05-17 15:06] LABS: ADD UA MICROSCOPIC YES
[2017-05-17 15:15] LABS: SQUAMOUS EPITHELIAL CELL,UR Few /LPF (None Seen); SULFOSALICYLIC ACID,URINE 2+ (Negative); WBC,URINE 0-2 /HPF (0-5)
[2017-05-17 15:20] LABS: EOSINOPHILS # (AUTO) 0.47 K/uL (0.00-0.70); EOSINOPHILS % (AUTO) 9.51 % (1.0-6.0); HEMATOCRIT 25.2 % (41-53); HEMOGLOBIN 7.7 g/dL (13.5-17.5); LYMPHOCYTES # (AUTO) 0.5 K/uL (1.0-4.8); LYMPHOCYTES % (AUTO) 10.1 % (22.0-44.0); MEAN CORPUSCULAR HEMOGLOBIN 22.4 pg (26.0-34.0); MEAN CORPUSCULAR HGB CONC 30.7 G/dL (31.0-37.0); MEAN CORPUSCULAR VOLUME 73 fL (80-100); MONOCYTES # (AUTO) 0.6 K/uL (0.1-1.0); MONOCYTES % (AUTO) 11.3 % (2.0-9.0); NEUTROPHILS # (AUTO) 3.4 K/uL (1.8-7.7); NEUTROPHILS % (AUTO) 69.1 % (40.0-70.0); PLATELET COUNT (AUTO) 210 K/uL (150-450); RED BLOOD CELL COUNT(AUTO) 3.45 MIL/uL (4.50-5.90); RED CELL DISTRIBUTION WIDTH 19.3 % (11.5-14.5)
[2017-05-17 15:32] LABS: CALCIUM, TOTAL 8.4 mg/dL (8.8-10.5); CREATININE 4.97 mg/dL (0.60-1.30)
[2017-05-17 15:35] LABS: INR 1.1 (0.9-1.1); PROTHROMBIN TIME 11.6 SEC (9.4-11.6)
[2017-05-17 15:38] LABS: ALBUMIN 2.7 g/dL (3.4-5.0); BILIRUBIN,TOTAL 0.6 mg/dL (0.1-1.0); TOTAL PROTEIN, SERUM 6.9 g/dL (6.4-8.2)
[2017-05-17 16:00] LABS: RBC MORPHOLOGY COMMENT ABNORMAL RBC MORPH
[2017-05-17] MEDS ORDERED: BUMETANIDE 0.25 MG/ML 10 ML VIAL IVP ONE (16:30)
[2017-05-17] MEDS ORDERED: HydrALAZINE HCL 20 MG/ML VIAL IVP ONE (19:30)
[2017-05-17] MEDS ORDERED: ONDANSETRON HCL 4 MG/2 ML VIAL IVP PRN (20:45)
[2017-05-17] MEDS ORDERED: BISACODYL 10 MG RECTAL RECTAL SUPPOSITORY PR PRN (20:45)
[2017-05-17] MEDS ORDERED: LABETALOL HCL 200 MG TABLET PO SCH (21:00)
[2017-05-17] MEDS ORDERED: CARVEDILOL 12.5 MG TABLET PO SCH (21:00)
[2017-05-17 21:20] VITALS: BP 192/112
[2017-05-17] MEDS: HYDROCODONE/ACETAMINOPHEN 5-325 MG TABLET PO PRN (21:46)
[2017-05-17] MEDS: DOCUSATE SODIUM 100 MG CAPSULE PO SCH (21:46)
[2017-05-17 23:37] VITALS: BP 201/90
[2017-05-18] MEDS: BUMETANIDE 0.25 MG/ML 10 ML VIAL IVP SCH ×4 (00:03→20:43)
[2017-05-18] MEDS: ZOLPIDEM TARTRATE 5 MG TABLET PO PRN ×2 (00:03→20:44)
[2017-05-18] MEDS: HEPARIN SODIUM,PORCINE 5,000 UNITS/ML VIAL SQ SCH ×4 (00:03→23:52)
[2017-05-18 04:43] VITALS: BP 200/100
[2017-05-18] MEDS: HydrALAZINE HCL 20 MG/ML VIAL IVP PRN ×2 (05:20→15:17)
[2017-05-18 06:57] VITALS: BP 179/95
[2017-05-18] MEDS: SEVELAMER CARBONATE 800 MG TABLET PO SCH ×3 (08:10→17:36)
[2017-05-18] MEDS: LABETALOL HCL 200 MG TABLET PO SCH ×3 (08:10→20:44)
[2017-05-18] MEDS: NIFEdipine 30 MG ER TABLET PO SCH (08:10)
[2017-05-18] MEDS: DOCUSATE SODIUM 100 MG CAPSULE PO SCH ×2 (08:10→20:44)
[2017-05-18] MEDS: PANTOPRAZOLE SODIUM 40 MG DR TABLET PO SCH (08:11)
[2017-05-18] MEDS: ASPIRIN 81 MG CHEWABLE TABLET PO SCH (08:11)
[2017-05-18] MEDS: ACETAMINOPHEN 325 MG TABLET PO PRN (08:11)
[2017-05-18 09:17] LABS: HEMATOCRIT 25.6 % (41-53); HEMOGLOBIN 8.1 g/dL (13.5-17.5); MEAN CORPUSCULAR HGB CONC 31.5 G/dL (31.0-37.0); MEAN CORPUSCULAR VOLUME 73 fL (80-100); PLATELET COUNT (AUTO) 230 K/uL (150-450); RED BLOOD CELL COUNT(AUTO) 3.52 MIL/uL (4.50-5.90); RED CELL DISTRIBUTION WIDTH 18.9 % (11.5-14.5); WHITE BLOOD COUNT (AUTO) 5.4 K/uL (4.5-11.0)
[2017-05-18 09:45] LABS: CALCIUM, TOTAL 8.3 mg/dL (8.8-10.5); CREATININE 4.77 mg/dL (0.60-1.30); PHOSPHORUS 4.2 mg/dL (2.5-4.9); POTASSIUM 3.9 mmol/L (3.5-5.1)
[2017-05-18] MEDS: EPOETIN ALFA 10,000 UNITS/ML VIAL SQ SCH (10:00)
[2017-05-18 10:07] LABS: LYMPHOCYTES % (MANUAL) 12 % (22-44); TOTAL CELLS COUNTED 100
[2017-05-18] MEDS ORDERED: BARIUM SULFATE 0.1% SUSPENSION 450 ML BOTTLE ONE (10:38)
[2017-05-18 10:46] VITALS: BP 183/95
[2017-05-18] MEDS: METOLAZONE 2.5 MG TABLET PO SCH ×2 (11:42→20:44)
[2017-05-18 15:00] VITALS: BP 174/90
[2017-05-18] MEDS: HYDROCODONE/ACETAMINOPHEN 5-325 MG TABLET PO PRN (15:11)
[2017-05-18] MEDS: MORPHINE SULFATE 2 MG/ML SYRINGE IVP PRN (17:46)
[2017-05-18 19:32] VITALS: BP 146/76
[2017-05-19 00:23] VITALS: BP 150/77
[2017-05-19 03:39] VITALS: BP 172/81
[2017-05-19 06:09] LABS: HEMATOCRIT 26.7 % (41-53); HEMOGLOBIN 8.2 g/dL (13.5-17.5); MEAN CORPUSCULAR HEMOGLOBIN 22.7 pg (26.0-34.0); MEAN CORPUSCULAR HGB CONC 30.8 G/dL (31.0-37.0); MEAN CORPUSCULAR VOLUME 74 fL (80-100); PLATELET COUNT (AUTO) 231 K/uL (150-450); RED BLOOD CELL COUNT(AUTO) 3.62 MIL/uL (4.50-5.90); WHITE BLOOD COUNT (AUTO) 5.1 K/uL (4.5-11.0)
[2017-05-19 06:10] LABS: CALCIUM, TOTAL 8.2 mg/dL (8.8-10.5); CREATININE 4.57 mg/dL (0.60-1.30); POTASSIUM 4.1 mmol/L (3.5-5.1)
[2017-05-19 07:02] VITALS: BP 174/91
[2017-05-19 07:46] LABS: EOSINOPHILS % (MANUAL) 1 % (1-6); LYMPHOCYTES % (MANUAL) 9 % (22-44); TOTAL CELLS COUNTED 100
[2017-05-19] MEDS: DOCUSATE SODIUM 100 MG CAPSULE PO SCH ×2 (08:24→20:02)
[2017-05-19] MEDS: PANTOPRAZOLE SODIUM 40 MG DR TABLET PO SCH (08:24)
[2017-05-19] MEDS: ASPIRIN 81 MG CHEWABLE TABLET PO SCH (08:24)
[2017-05-19] MEDS: LABETALOL HCL 200 MG TABLET PO SCH ×3 (08:24→20:01)
[2017-05-19] MEDS: HEPARIN SODIUM,PORCINE 5,000 UNITS/ML VIAL SQ SCH ×3 (08:24→23:22)
[2017-05-19] MEDS: BUMETANIDE 0.25 MG/ML 10 ML VIAL IVP SCH ×3 (08:25→20:02)
[2017-05-19] MEDS: SEVELAMER CARBONATE 800 MG TABLET PO SCH ×3 (08:25→18:22)
[2017-05-19] MEDS: METOLAZONE 2.5 MG TABLET PO SCH ×2 (09:46→20:02)
[2017-05-19] MEDS: NIFEdipine 30 MG ER TABLET PO SCH (09:46)
[2017-05-19] MEDS ORDERED: SODIUM CHLORIDE 0.9% 100 ML ONE (10:59)
[2017-05-19] MEDS: IRON SUCROSE COMPLEX 200 MG in SODIUM CHLORIDE 0.9% 100 ML IV SCH (11:10)
[2017-05-19 11:30] VITALS: BP 178/94
[2017-05-19 14:45] VITALS: BP 165/84
[2017-05-19 19:30] VITALS: BP 160/71
[2017-05-19] MEDS: ZOLPIDEM TARTRATE 5 MG TABLET PO PRN (20:02)
[2017-05-20 00:18] VITALS: BP 159/78
[2017-05-20 04:25] VITALS: BP 164/91
[2017-05-20 06:02] LABS: HEMATOCRIT 23.4 % (41-53); HEMOGLOBIN 7.5 g/dL (13.5-17.5); MEAN CORPUSCULAR HEMOGLOBIN 22.8 pg (26.0-34.0); MEAN CORPUSCULAR HGB CONC 31.9 G/dL (31.0-37.0); MEAN CORPUSCULAR VOLUME 71 fL (80-100); PLATELET COUNT (AUTO) 240 K/uL (150-450); RED BLOOD CELL COUNT(AUTO) 3.28 MIL/uL (4.50-5.90); RED CELL DISTRIBUTION WIDTH 18.8 % (11.5-14.5); WHITE BLOOD COUNT (AUTO) 4.8 K/uL (4.5-11.0)
[2017-05-20 06:03] LABS: CALCIUM, TOTAL 8.2 mg/dL (8.8-10.5); CREATININE 4.56 mg/dL (0.60-1.30); POTASSIUM 3.9 mmol/L (3.5-5.1)
[2017-05-20 07:20] VITALS: BP 165/85
[2017-05-20] MEDS: PANTOPRAZOLE SODIUM 40 MG DR TABLET PO SCH (08:12)
[2017-05-20] MEDS: ASPIRIN 81 MG CHEWABLE TABLET PO SCH (08:12)
[2017-05-20] MEDS: METOLAZONE 2.5 MG TABLET PO SCH ×2 (08:12→21:04)
[2017-05-20] MEDS: DOCUSATE SODIUM 100 MG CAPSULE PO SCH ×2 (08:12→21:04)
[2017-05-20] MEDS: LABETALOL HCL 100 MG TABLET PO SCH ×3 (08:12→21:04)
[2017-05-20] MEDS: CALCITRIOL 1 MCG/ML AMP IVP SCH (08:12)
[2017-05-20] MEDS: HEPARIN SODIUM,PORCINE 5,000 UNITS/ML VIAL SQ SCH ×2 (08:12→16:00)
[2017-05-20] MEDS: NIFEdipine 60 MG ER TABLET PO SCH (08:12)
[2017-05-20] MEDS: SEVELAMER CARBONATE 800 MG TABLET PO SCH ×3 (08:13→21:04)
[2017-05-20 08:49] LABS: BAND NEUTROPHILS % (MANUAL) 1 % (1-5); LYMPHOCYTES % (MANUAL) 10 % (22-44); TOTAL CELLS COUNTED 100
[2017-05-20 08:50] LABS: RBC MORPHOLOGY COMMENT ABNORMAL R
[2017-05-20] MEDS ORDERED: CALCITRIOL 1 MCG/ML AMP IVP SCH (09:00)
[2017-05-20] MEDS: BUMETANIDE 0.25 MG/ML 10 ML VIAL IVP SCH (09:05)
[2017-05-20] MEDS: IRON SUCROSE COMPLEX 200 MG in SODIUM CHLORIDE 0.9% 100 ML IV SCH (09:05)
[2017-05-20] MEDS: MAGNESIUM HYDROXIDE SUSPENSION 30 ML UDCUP PO PRN (09:07)
[2017-05-20 11:11] VITALS: BP 161/86
[2017-05-20] MEDS: HydrALAZINE HCL 20 MG/ML VIAL IVP PRN (12:06)
[2017-05-20] MEDS: HydrALAZINE HCL 25 MG TABLET PO SCH ×2 (16:00→21:04)
[2017-05-20 16:25] VITALS: BP 169/93
[2017-05-20] MEDS ORDERED: ALBUMIN HUMAN 25%-12.5GM/50ML IV BOTTLE IV ONE (16:57)
[2017-05-20] MEDS ORDERED: LIDOCAINE HCL/PF 1% 2 ML VIAL INJ ONE (16:57)
[2017-05-20] MEDS ORDERED: SODIUM CHLORIDE 0.9% 1,000 ML IV ONE (17:03)
[2017-05-20] MEDS ORDERED: ALBUMIN HUMAN 25%-12.5GM/50ML IV BOTTLE IV PRN (18:15)
[2017-05-20] MEDS ORDERED: MANNITOL 25%-12.5 GM/50 ML VIAL IVP PRN (18:15)
[2017-05-20] MEDS: LIDOCAINE HCL/PF 1% 2 ML VIAL ID PRN (18:20)
[2017-05-20] MEDS: ACETAMINOPHEN 325 MG TABLET PO PRN (18:46)
[2017-05-20 20:06] VITALS: BP 167/80
[2017-05-20] MEDS: FUROSEMIDE 80 MG TABLET PO SCH (21:04)
[2017-05-21] VITALS (10 sets, daily range): BP systolic 156–199; BP diastolic 75–103
[2017-05-21] MEDS: HEPARIN SODIUM,PORCINE 5,000 UNITS/ML VIAL SQ SCH ×3 (01:00→16:00)
[2017-05-21 06:48] LABS: HEMATOCRIT 25.1 % (41-53); MEAN CORPUSCULAR HEMOGLOBIN 23.2 pg (26.0-34.0); MEAN CORPUSCULAR HGB CONC 31.9 G/dL (31.0-37.0); MEAN CORPUSCULAR VOLUME 73 fL (80-100); PLATELET COUNT (AUTO) 248 K/uL (150-450); RED BLOOD CELL COUNT(AUTO) 3.46 MIL/uL (4.50-5.90); WHITE BLOOD COUNT (AUTO) 4.9 K/uL (4.5-11.0)
[2017-05-21 07:12] LABS: CALCIUM, TOTAL 8.1 mg/dL (8.8-10.5); CREATININE 3.77 mg/dL (0.60-1.30); MAGNESIUM 1.9 mg/dL (1.80-2.40); PHOSPHORUS 3.8 mg/dL (2.5-4.9); POTASSIUM 3.7 mmol/L (3.5-5.1)
[2017-05-21] MEDS: DOCUSATE SODIUM 100 MG CAPSULE PO SCH ×2 (09:00→20:20)
[2017-05-21 09:38] LABS: EOSINOPHILS % (MANUAL) 1 % (1-6); LYMPHOCYTES % (MANUAL) 11 % (22-44); TOTAL CELLS COUNTED 100
[2017-05-21 09:40] LABS: RBC MORPHOLOGY COMMENT ABNORMAL R
[2017-05-21] MEDS: LIDOCAINE HCL/PF 1% 2 ML VIAL ID PRN (10:20)
[2017-05-21] MEDS ORDERED: LIDOCAINE HCL/PF 1% 2 ML VIAL INJ ONE (12:00)
[2017-05-21] MEDS: SEVELAMER CARBONATE 800 MG TABLET PO SCH ×3 (12:00→18:12)
[2017-05-21] MEDS: PANTOPRAZOLE SODIUM 40 MG DR TABLET PO SCH (14:28)
[2017-05-21] MEDS: ASPIRIN 81 MG CHEWABLE TABLET PO SCH (14:28)
[2017-05-21] MEDS: FUROSEMIDE 80 MG TABLET PO SCH ×2 (14:29→20:20)
[2017-05-21] MEDS: METOLAZONE 2.5 MG TABLET PO SCH ×2 (14:29→20:20)
[2017-05-21] MEDS: NIFEdipine 60 MG ER TABLET PO SCH (14:30)
[2017-05-21] MEDS: LABETALOL HCL 100 MG TABLET PO SCH ×3 (14:31→20:20)
[2017-05-21] MEDS: HydrALAZINE HCL 25 MG TABLET PO SCH ×3 (14:33→20:20)
[2017-05-21] MEDS: IRON SUCROSE COMPLEX 200 MG in SODIUM CHLORIDE 0.9% 100 ML IV SCH (14:37)
[2017-05-21] MEDS: HYDROCODONE/ACETAMINOPHEN 5-325 MG TABLET PO PRN (17:01)
[2017-05-21] MEDS: HydrALAZINE HCL 20 MG/ML VIAL IVP PRN (17:01)
[2017-05-21] MEDS: ZOLPIDEM TARTRATE 5 MG TABLET PO PRN (20:20)
[2017-05-22] VITALS (8 sets, daily range): BP systolic 127–196; BP diastolic 59–111
[2017-05-22] MEDS: SEVELAMER CARBONATE 800 MG TABLET PO SCH ×3 (08:25→17:47)
[2017-05-22] MEDS: ASPIRIN 81 MG CHEWABLE TABLET PO SCH (08:26)
[2017-05-22] MEDS: DOCUSATE SODIUM 100 MG CAPSULE PO SCH ×2 (08:26→20:17)
[2017-05-22] MEDS: HEPARIN SODIUM,PORCINE 5,000 UNITS/ML VIAL SQ SCH ×3 (08:26→15:10)
[2017-05-22] MEDS: LABETALOL HCL 100 MG TABLET PO SCH ×3 (08:26→20:17)
[2017-05-22] MEDS: CALCITRIOL 1 MCG/ML AMP IVP SCH (08:26)
[2017-05-22] MEDS: FUROSEMIDE 80 MG TABLET PO SCH ×2 (08:27→20:18)
[2017-05-22] MEDS: PANTOPRAZOLE SODIUM 40 MG DR TABLET PO SCH (08:27)
[2017-05-22] MEDS: HydrALAZINE HCL 25 MG TABLET PO SCH ×3 (08:28→20:18)
[2017-05-22] MEDS: IRON SUCROSE COMPLEX 200 MG in SODIUM CHLORIDE 0.9% 100 ML IV SCH (10:58)
[2017-05-22] MEDS ORDERED: SODIUM CHLORIDE 0.9% 250 ML IV ONE (10:58)
[2017-05-22] MEDS ORDERED: HEPARIN SODIUM,PORCINE 1,000 UNITS/ML VIAL IVP ONE (12:00)
[2017-05-22] MEDS ORDERED: HEPARIN SODIUM,PORCINE 1,000 UNITS/ML 10 ML VIAL ONE (12:15)
[2017-05-22] MEDS ORDERED: LIDOCAINE HCL/PF 1% 30 ML VIAL ONE (12:15)
[2017-05-22] MEDS ORDERED: HEPARIN SODIUM 1000 UNITS/NS 500 ML ONE (12:16)
[2017-05-22] MEDS ORDERED: CeFAZolin 1 GM/DEXTROSE 50 ML IV ONE ×2 (13:23→13:50)
[2017-05-22] MEDS ORDERED: MIDAZOLAM HCL 2 MG/2 ML VIAL ONE (13:23)
[2017-05-22] MEDS ORDERED: FentaNYL CITRATE-PF 100 MCG/2 ML VIAL ONE (13:23)
[2017-05-22] MEDS ORDERED: MIDAZOLAM HCL 2 MG/2 ML VIAL IVP ONE (13:52)
[2017-05-22] MEDS ORDERED: FentaNYL CITRATE-PF 100 MCG/2 ML VIAL IVP ONE (13:53)
[2017-05-22] MEDS: METOLAZONE 2.5 MG TABLET PO SCH ×2 (15:10→20:17)
[2017-05-22] MEDS: NIFEdipine 90 MG ER TABLET PO SCH (15:10)
[2017-05-22] MEDS: HYDROCODONE/ACETAMINOPHEN 5-325 MG TABLET PO PRN ×2 (15:10→20:18)
[2017-05-22] MEDS: MAGNESIUM HYDROXIDE SUSPENSION 30 ML UDCUP PO PRN (15:10)
[2017-05-22] MEDS ORDERED: SODIUM CHLORIDE 0.9% 1,000 ML IV ONE (15:53)
[2017-05-22] MEDS ORDERED: MANNITOL 25%-12.5 GM/50 ML VIAL IVP PRN (16:00)
[2017-05-22] MEDS ORDERED: ALBUMIN HUMAN 25%-12.5GM/50ML IV BOTTLE IV PRN (16:00)
[2017-05-22] MEDS ORDERED: LIDOCAINE HCL/PF 1% 2 ML VIAL ID PRN (16:00)
[2017-05-22] MEDS: MORPHINE SULFATE 2 MG/ML SYRINGE IVP PRN (16:01)
[2017-05-22] MEDS: HydrALAZINE HCL 20 MG/ML VIAL IVP PRN (17:47)
[2017-05-22] MEDS: ZOLPIDEM TARTRATE 5 MG TABLET PO PRN (20:18)
[2017-05-23] MEDS: MORPHINE SULFATE 2 MG/ML SYRINGE IVP PRN ×4 (04:59→20:10)
[2017-05-23 05:04] VITALS: BP 160/83
[2017-05-23 07:17] VITALS: BP 169/86
[2017-05-23] MEDS: SEVELAMER CARBONATE 800 MG TABLET PO SCH ×3 (08:05→17:59)
[2017-05-23] MEDS: HEPARIN SODIUM,PORCINE 5,000 UNITS/ML VIAL SQ SCH ×3 (08:06→14:50)
[2017-05-23] MEDS: PANTOPRAZOLE SODIUM 40 MG DR TABLET PO SCH (09:43)
[2017-05-23] MEDS: METOLAZONE 2.5 MG TABLET PO SCH ×2 (09:43→20:10)
[2017-05-23] MEDS: NIFEdipine 90 MG ER TABLET PO SCH (09:43)
[2017-05-23] MEDS: ASPIRIN 81 MG CHEWABLE TABLET PO SCH (09:43)
[2017-05-23] MEDS: LABETALOL HCL 100 MG TABLET PO SCH ×3 (09:43→20:10)
[2017-05-23] MEDS: DOCUSATE SODIUM 100 MG CAPSULE PO SCH ×2 (09:43→20:10)
[2017-05-23] MEDS: FUROSEMIDE 80 MG TABLET PO SCH ×2 (09:43→20:10)
[2017-05-23] MEDS: HydrALAZINE HCL 25 MG TABLET PO SCH ×3 (09:43→20:10)
[2017-05-23] MEDS: IRON SUCROSE COMPLEX 200 MG in SODIUM CHLORIDE 0.9% 100 ML IV SCH (09:46)
[2017-05-23] MEDS ORDERED: HEPARIN SODIUM,PORCINE 1,000 UNITS/ML VIAL IVP ONE ×3 (11:00→12:00)
[2017-05-23 11:18] VITALS: BP 201/94
[2017-05-23] MEDS: VITAMIN B COMP/VIT C/FOLIC ACID CAPSULE PO SCH (14:50)
[2017-05-23] MEDS: HYDROCODONE/ACETAMINOPHEN 5-325 MG TABLET PO PRN ×2 (14:51→22:04)
[2017-05-23 14:52] VITALS: BP 188/99
[2017-05-23 19:49] VITALS: BP 179/99
[2017-05-23 21:55] VITALS: BP 176/94
[2017-05-23] MEDS: ZOLPIDEM TARTRATE 10 MG TABLET PO PRN (22:04)
[2017-05-23] MEDS: HydrALAZINE HCL 20 MG/ML VIAL IVP PRN (22:05)
[2017-05-24] VITALS (9 sets, daily range): BP systolic 112–194; BP diastolic 63–91
[2017-05-24] MEDS: HEPARIN SODIUM,PORCINE 5,000 UNITS/ML VIAL SQ SCH ×4 (00:11→23:20)
[2017-05-24] MEDS: HydrALAZINE HCL 20 MG/ML VIAL IVP PRN (06:41)
[2017-05-24 07:39] LABS: CALCIUM, TOTAL 7.6 mg/dL (8.8-10.5); CREATININE 2.86 mg/dL (0.60-1.30); MAGNESIUM 1.7 mg/dL (1.80-2.40); PHOSPHORUS 1.7 mg/dL (2.5-4.9); POTASSIUM 4.3 mmol/L (3.5-5.1)
[2017-05-24] MEDS: VITAMIN B COMP/VIT C/FOLIC ACID CAPSULE PO SCH (09:40)
[2017-05-24] MEDS: LABETALOL HCL 100 MG TABLET PO SCH ×3 (09:40→22:10)
[2017-05-24] MEDS: PANTOPRAZOLE SODIUM 40 MG DR TABLET PO SCH (09:40)
[2017-05-24] MEDS: MAGNESIUM HYDROXIDE SUSPENSION 30 ML UDCUP PO PRN (09:40)
[2017-05-24] MEDS: SEVELAMER CARBONATE 800 MG TABLET PO SCH ×3 (09:40→17:34)
[2017-05-24] MEDS: DOCUSATE SODIUM 100 MG CAPSULE PO SCH ×2 (09:40→20:09)
[2017-05-24] MEDS: HYDROCODONE/ACETAMINOPHEN 5-325 MG TABLET PO PRN ×2 (09:41→20:09)
[2017-05-24] MEDS: ASPIRIN 81 MG CHEWABLE TABLET PO SCH (09:44)
[2017-05-24] MEDS: CALCITRIOL 1 MCG/ML AMP IVP SCH (09:54)
[2017-05-24] MEDS ORDERED: HEPARIN SODIUM,PORCINE 1,000 UNITS/ML VIAL IVP ONE ×3 (12:00→17:00)
[2017-05-24] MEDS: FUROSEMIDE 80 MG TABLET PO SCH ×2 (13:17→20:09)
[2017-05-24] MEDS: NIFEdipine 90 MG ER TABLET PO SCH (13:17)
[2017-05-24] MEDS: METOLAZONE 2.5 MG TABLET PO SCH ×2 (13:17→22:10)
[2017-05-24] MEDS: HydrALAZINE HCL 25 MG TABLET PO SCH ×3 (13:17→20:09)
[2017-05-24] MEDS ORDERED: COLCHICINE 0.6 MG TABLET PO ONE (13:30)
[2017-05-24] MEDS: IBUPROFEN 600 MG TABLET PO SCH ×2 (16:41→22:10)
[2017-05-24 19:53] LABS: GLUCOSE,POINT OF CARE 116 MG/DL (70-110)
[2017-05-24] MEDS: ISOSORBIDE MONONITRATE 30 MG ER TABLET PO SCH (20:09)
[2017-05-24] MEDS: ZOLPIDEM TARTRATE 10 MG TABLET PO PRN (22:10)
[2017-05-25 04:31] VITALS: BP 127/80
[2017-05-25 06:25] LABS: EOSINOPHILS % (AUTO) 10.3 % (1.0-6.0); HEMATOCRIT 22.3 % (41-53); LYMPHOCYTES # (AUTO) 0.5 K/uL (1.0-4.8); LYMPHOCYTES % (AUTO) 10.6 % (22.0-44.0); MEAN CORPUSCULAR HEMOGLOBIN 23.1 pg (26.0-34.0); MEAN CORPUSCULAR HGB CONC 31.3 G/dL (31.0-37.0); MEAN CORPUSCULAR VOLUME 74 fL (80-100); MONOCYTES # (AUTO) 0.5 K/uL (0.1-1.0); MONOCYTES % (AUTO) 10.3 % (2.0-9.0); NEUTROPHILS # (AUTO) 3.6 K/uL (1.8-7.7); NEUTROPHILS % (AUTO) 68.8 % (40.0-70.0); PLATELET COUNT (AUTO) 213 K/uL (150-450); RED BLOOD CELL COUNT(AUTO) 3.02 MIL/uL (4.50-5.90); RED CELL DISTRIBUTION WIDTH 19.4 % (11.5-14.5); WHITE BLOOD COUNT (AUTO) 5.2 K/uL (4.5-11.0)
[2017-05-25 07:07] VITALS: BP 132/80
[2017-05-25] MEDS: IBUPROFEN 600 MG TABLET PO SCH ×3 (08:42→18:16)
[2017-05-25] MEDS: ASPIRIN 81 MG CHEWABLE TABLET PO SCH (08:42)
[2017-05-25] MEDS: SEVELAMER CARBONATE 800 MG TABLET PO SCH ×3 (08:42→18:16)
[2017-05-25] MEDS: HEPARIN SODIUM,PORCINE 5,000 UNITS/ML VIAL SQ SCH ×3 (08:43→23:33)
[2017-05-25] MEDS: METOLAZONE 2.5 MG TABLET PO SCH ×2 (09:00→20:06)
[2017-05-25] MEDS: LABETALOL HCL 100 MG TABLET PO SCH ×3 (09:00→21:00)
[2017-05-25 10:52] VITALS: BP 151/83
[2017-05-25] MEDS: PANTOPRAZOLE SODIUM 40 MG DR TABLET PO SCH (14:15)
[2017-05-25] MEDS: DOCUSATE SODIUM 100 MG CAPSULE PO SCH ×2 (14:15→20:05)
[2017-05-25] MEDS: VITAMIN B COMP/VIT C/FOLIC ACID CAPSULE PO SCH (14:15)
[2017-05-25] MEDS: FUROSEMIDE 80 MG TABLET PO SCH ×2 (14:16→20:07)
[2017-05-25] MEDS: ISOSORBIDE MONONITRATE 30 MG ER TABLET PO SCH ×2 (14:16→20:04)
[2017-05-25] MEDS: EPOETIN ALFA 10,000 UNITS/ML VIAL SQ SCH (14:17)
[2017-05-25] MEDS: HydrALAZINE HCL 25 MG TABLET PO SCH (14:26)
[2017-05-25 14:32] VITALS: BP 144/97
[2017-05-25 15:13] VITALS: BP 156/78
[2017-05-25] MEDS: NIFEdipine 90 MG ER TABLET PO SCH (16:43)
[2017-05-25] MEDS: MAGNESIUM HYDROXIDE SUSPENSION 30 ML UDCUP PO PRN (16:47)
[2017-05-25] MEDS ORDERED: HEPARIN SODIUM,PORCINE 1,000 UNITS/ML VIAL IVP ONE (18:36)
[2017-05-25] MEDS: HYDROCODONE/ACETAMINOPHEN 5-325 MG TABLET PO PRN (20:04)
[2017-05-25] MEDS: ZOLPIDEM TARTRATE 10 MG TABLET PO PRN (20:04)
[2017-05-25 20:27] VITALS: BP 157/80
[2017-05-25] MEDS: HydrALAZINE HCL 50 MG TABLET PO SCH (21:00)
[2017-05-26 00:11] VITALS: BP 121/66
[2017-05-26 04:59] VITALS: BP 150/70
[2017-05-26 07:29] VITALS: BP 142/92
[2017-05-26 07:40] LABS: BILIRUBIN,TOTAL 0.5 mg/dL (0.1-1.0); CALCIUM, TOTAL 8.1 mg/dL (8.8-10.5); CREATININE 2.52 mg/dL (0.60-1.30); MAGNESIUM 1.8 mg/dL (1.80-2.40); TOTAL PROTEIN, SERUM 7.4 g/dL (6.4-8.2)
[2017-05-26 08:03] LABS: EOSINOPHILS % (AUTO) 11.4 % (1.0-6.0); HEMATOCRIT 26.1 % (41-53); HEMOGLOBIN 8.2 g/dL (13.5-17.5); LYMPHOCYTES # (AUTO) 0.6 K/uL (1.0-4.8); LYMPHOCYTES % (AUTO) 11.5 % (22.0-44.0); MEAN CORPUSCULAR HEMOGLOBIN 23.1 pg (26.0-34.0); MEAN CORPUSCULAR HGB CONC 31.3 G/dL (31.0-37.0); MEAN CORPUSCULAR VOLUME 74 fL (80-100); MONOCYTES # (AUTO) 0.5 K/uL (0.1-1.0); MONOCYTES % (AUTO) 9.6 % (2.0-9.0); NEUTROPHILS # (AUTO) 3.6 K/uL (1.8-7.7); NEUTROPHILS % (AUTO) 67.5 % (40.0-70.0); PLATELET COUNT (AUTO) 265 K/uL (150-450); RED BLOOD CELL COUNT(AUTO) 3.53 MIL/uL (4.50-5.90); RED CELL DISTRIBUTION WIDTH 20.3 % (11.5-14.5); WHITE BLOOD COUNT (AUTO) 5.4 K/uL (4.5-11.0)
[2017-05-26] MEDS: PANTOPRAZOLE SODIUM 40 MG DR TABLET PO SCH (08:32)
[2017-05-26] MEDS: HydrALAZINE HCL 50 MG TABLET PO SCH ×3 (08:32→20:55)
[2017-05-26] MEDS: ISOSORBIDE MONONITRATE 30 MG ER TABLET PO SCH ×2 (08:32→20:54)
[2017-05-26] MEDS: HEPARIN SODIUM,PORCINE 5,000 UNITS/ML VIAL SQ SCH ×3 (08:32→23:40)
[2017-05-26] MEDS: VITAMIN B COMP/VIT C/FOLIC ACID CAPSULE PO SCH (08:32)
[2017-05-26] MEDS: ASPIRIN 81 MG CHEWABLE TABLET PO SCH (08:33)
[2017-05-26] MEDS: SEVELAMER CARBONATE 800 MG TABLET PO SCH ×3 (08:33→17:12)
[2017-05-26] MEDS: FUROSEMIDE 80 MG TABLET PO SCH ×2 (08:33→20:53)
[2017-05-26] MEDS: DOCUSATE SODIUM 100 MG CAPSULE PO SCH ×2 (08:33→20:54)
[2017-05-26] MEDS: METOLAZONE 2.5 MG TABLET PO SCH ×2 (08:34→20:54)
[2017-05-26] MEDS: NIFEdipine 90 MG ER TABLET PO SCH (08:34)
[2017-05-26] MEDS: LABETALOL HCL 100 MG TABLET PO SCH ×3 (08:34→20:55)
[2017-05-26] MEDS: IBUPROFEN 600 MG TABLET PO SCH ×3 (08:56→17:13)
[2017-05-26 11:31] VITALS: BP 157/84
[2017-05-26 15:04] VITALS: BP 142/82
[2017-05-26 19:29] VITALS: BP 148/69
[2017-05-26] MEDS: ZOLPIDEM TARTRATE 10 MG TABLET PO PRN (20:54)
[2017-05-26] MEDS: HYDROCODONE/ACETAMINOPHEN 5-325 MG TABLET PO PRN (20:55)
[2017-05-27] VITALS (8 sets, daily range): BP systolic 141–241; BP diastolic 65–112
[2017-05-27 07:00] LABS: CALCIUM, TOTAL 7.9 mg/dL (8.8-10.5); CREATININE 3.2 mg/dL (0.60-1.30); MAGNESIUM 1.9 mg/dL (1.80-2.40); PHOSPHORUS 1.8 mg/dL (2.5-4.9); POTASSIUM 3.9 mmol/L (3.5-5.1)
[2017-05-27 07:03] LABS: BASOPHILS % (AUTO) 0.2 % (0.0-2.0); EOSINOPHILS % (AUTO) 10.2 % (1.0-6.0); HEMATOCRIT 22.3 % (41-53); HEMOGLOBIN 7.1 g/dL (13.5-17.5); LYMPHOCYTES # (AUTO) 0.4 K/uL (1.0-4.8); LYMPHOCYTES % (AUTO) 8.5 % (22.0-44.0); MEAN CORPUSCULAR HEMOGLOBIN 23.4 pg (26.0-34.0); MEAN CORPUSCULAR HGB CONC 31.7 G/dL (31.0-37.0); MEAN CORPUSCULAR VOLUME 74 fL (80-100); MONOCYTES # (AUTO) 0.6 K/uL (0.1-1.0); MONOCYTES % (AUTO) 11.1 % (2.0-9.0); NEUTROPHILS # (AUTO) 3.6 K/uL (1.8-7.7); PLATELET COUNT (AUTO) 233 K/uL (150-450); RED BLOOD CELL COUNT(AUTO) 3.01 MIL/uL (4.50-5.90); RED CELL DISTRIBUTION WIDTH 20.3 % (11.5-14.5); WHITE BLOOD COUNT (AUTO) 5.2 K/uL (4.5-11.0)
[2017-05-27 09:08] LABS: RBC MORPHOLOGY COMMENT ABNORMAL RBC MORPH
[2017-05-27] MEDS: HEPARIN SODIUM,PORCINE 5,000 UNITS/ML VIAL SQ SCH ×3 (09:39→23:37)
[2017-05-27] MEDS: PANTOPRAZOLE SODIUM 40 MG DR TABLET PO SCH (09:40)
[2017-05-27] MEDS: IBUPROFEN 600 MG TABLET PO SCH ×3 (09:40→18:44)
[2017-05-27] MEDS: DOCUSATE SODIUM 100 MG CAPSULE PO SCH ×2 (09:43→20:08)
[2017-05-27] MEDS: ISOSORBIDE MONONITRATE 30 MG ER TABLET PO SCH ×2 (09:43→20:09)
[2017-05-27] MEDS: ASPIRIN 81 MG CHEWABLE TABLET PO SCH (09:44)
[2017-05-27] MEDS: VITAMIN B COMP/VIT C/FOLIC ACID CAPSULE PO SCH (09:44)
[2017-05-27] MEDS: SEVELAMER CARBONATE 800 MG TABLET PO SCH ×3 (09:44→18:44)
[2017-05-27] MEDS: CALCITRIOL 1 MCG/ML AMP IVP SCH (09:45)
[2017-05-27] MEDS ORDERED: SODIUM CHLORIDE 0.9% 1,000 ML IV ONE (11:46)
[2017-05-27] MEDS ORDERED: HEPARIN SODIUM,PORCINE 1,000 UNITS/ML VIAL IVP ONE ×3 (13:15→17:19)
[2017-05-27] MEDS: LABETALOL HCL 100 MG TABLET PO SCH ×3 (14:40→22:20)
[2017-05-27] MEDS: HydrALAZINE HCL 50 MG TABLET PO SCH ×3 (16:00→20:09)
[2017-05-27] MEDS: NIFEdipine 90 MG ER TABLET PO SCH (16:08)
[2017-05-27] MEDS: HYDROCODONE/ACETAMINOPHEN 5-325 MG TABLET PO PRN ×2 (16:16→22:20)
[2017-05-27] MEDS: MAGNESIUM HYDROXIDE SUSPENSION 30 ML UDCUP PO PRN (18:47)
[2017-05-27] MEDS: ZOLPIDEM TARTRATE 10 MG TABLET PO PRN (22:20)
[2017-05-28] VITALS (8 sets, daily range): BP systolic 103–183; BP diastolic 55–89
[2017-05-28 06:54] LABS: HEMATOCRIT 24.9 % (41-53); HEMOGLOBIN 7.9 g/dL (13.5-17.5); MEAN CORPUSCULAR HGB CONC 31.6 G/dL (31.0-37.0); MEAN CORPUSCULAR VOLUME 73 fL (80-100); PLATELET COUNT (AUTO) 273 K/uL (150-450); RED BLOOD CELL COUNT(AUTO) 3.41 MIL/uL (4.50-5.90); RED CELL DISTRIBUTION WIDTH 20.4 % (11.5-14.5); WHITE BLOOD COUNT (AUTO) 5.4 K/uL (4.5-11.0)
[2017-05-28 07:11] LABS: CALCIUM, TOTAL 7.9 mg/dL (8.8-10.5); CREATININE 2.69 mg/dL (0.60-1.30); POTASSIUM 3.9 mmol/L (3.5-5.1)
[2017-05-28 08:06] LABS: BAND NEUTROPHILS % (MANUAL) 2 % (1-5); EOSINOPHILS % (MANUAL) 4 % (1-6); LYMPHOCYTES % (MANUAL) 14 % (22-44); TOTAL CELLS COUNTED 100
[2017-05-28] MEDS: IBUPROFEN 600 MG TABLET PO SCH ×3 (08:06→18:10)
[2017-05-28] MEDS: HEPARIN SODIUM,PORCINE 5,000 UNITS/ML VIAL SQ SCH ×2 (08:06→16:04)
[2017-05-28] MEDS: HydrALAZINE HCL 50 MG TABLET PO SCH ×3 (08:06→23:18)
[2017-05-28] MEDS: SEVELAMER CARBONATE 800 MG TABLET PO SCH ×3 (08:06→18:10)
[2017-05-28 08:07] LABS: RBC MORPHOLOGY COMMENT ABNORMAL RBC MORPH
[2017-05-28] MEDS: PANTOPRAZOLE SODIUM 40 MG DR TABLET PO SCH (08:07)
[2017-05-28] MEDS: LABETALOL HCL 100 MG TABLET PO SCH ×3 (08:07→21:15)
[2017-05-28] MEDS: DOCUSATE SODIUM 100 MG CAPSULE PO SCH ×2 (08:07→21:16)
[2017-05-28] MEDS: ASPIRIN 81 MG CHEWABLE TABLET PO SCH (08:07)
[2017-05-28] MEDS: ISOSORBIDE MONONITRATE 30 MG ER TABLET PO SCH ×2 (14:05→23:18)
[2017-05-28] MEDS: NIFEdipine 90 MG ER TABLET PO SCH (14:06)
[2017-05-28] MEDS: VITAMIN B COMP/VIT C/FOLIC ACID CAPSULE PO SCH (14:06)
[2017-05-28] MEDS: FUROSEMIDE 80 MG TABLET PO SCH (14:06)
[2017-05-28] MEDS: EPOETIN ALFA 10,000 UNITS/ML VIAL SQ PRN (14:59)
[2017-05-28] MEDS: -EPOGEN NOTE- MISC SCH (15:00)
[2017-05-28] MEDS: ZOLPIDEM TARTRATE 10 MG TABLET PO PRN (21:15)
[2017-05-28] MEDS: ACETAMINOPHEN 325 MG TABLET PO PRN (21:16)
[2017-05-29] MEDS: HEPARIN SODIUM,PORCINE 5,000 UNITS/ML VIAL SQ SCH ×3 (00:50→16:44)
[2017-05-29 05:05] VITALS: BP 135/65
[2017-05-29 07:01] VITALS: BP 169/74
[2017-05-29] MEDS: SEVELAMER CARBONATE 800 MG TABLET PO SCH ×3 (08:00→17:48)
[2017-05-29 08:27] LABS: HEMATOCRIT 25.6 % (41-53); HEMOGLOBIN 8.1 g/dL (13.5-17.5); MEAN CORPUSCULAR HEMOGLOBIN 23.6 pg (26.0-34.0); MEAN CORPUSCULAR HGB CONC 31.8 G/dL (31.0-37.0); MEAN CORPUSCULAR VOLUME 74 fL (80-100); PLATELET COUNT (AUTO) 261 K/uL (150-450); RED BLOOD CELL COUNT(AUTO) 3.44 MIL/uL (4.50-5.90); RED CELL DISTRIBUTION WIDTH 21.2 % (11.5-14.5)
[2017-05-29 08:44] LABS: CREATININE 2.64 mg/dL (0.60-1.30); POTASSIUM 3.7 mmol/L (3.5-5.1)
[2017-05-29] MEDS: IBUPROFEN 600 MG TABLET PO SCH ×3 (08:55→17:47)
[2017-05-29] MEDS: DOCUSATE SODIUM 100 MG CAPSULE PO SCH ×2 (08:56→21:46)
[2017-05-29] MEDS: NIFEdipine 90 MG ER TABLET PO SCH (08:56)
[2017-05-29] MEDS: VITAMIN B COMP/VIT C/FOLIC ACID CAPSULE PO SCH (08:56)
[2017-05-29] MEDS: HydrALAZINE HCL 50 MG TABLET PO SCH ×3 (08:56→21:46)
[2017-05-29] MEDS: LABETALOL HCL 100 MG TABLET PO SCH ×3 (08:56→21:46)
[2017-05-29] MEDS: ISOSORBIDE MONONITRATE 30 MG ER TABLET PO SCH ×2 (08:56→21:47)
[2017-05-29] MEDS: ASPIRIN 81 MG CHEWABLE TABLET PO SCH (08:56)
[2017-05-29] MEDS: -EPOGEN NOTE- MISC SCH (09:00)
[2017-05-29 10:04] LABS: LYMPHOCYTES % (MANUAL) 13 % (22-44); TOTAL CELLS COUNTED 100
[2017-05-29 10:05] LABS: RBC MORPHOLOGY COMMENT ABNORMAL R
[2017-05-29 11:32] VITALS: BP 176/81
[2017-05-29] MEDS: PANTOPRAZOLE SODIUM 40 MG DR TABLET PO SCH (12:05)
[2017-05-29] MEDS: HydrALAZINE HCL 20 MG/ML VIAL IVP PRN (12:06)
[2017-05-29 14:14] VITALS: BP 161/71
[2017-05-29] MEDS: MAGNESIUM HYDROXIDE SUSPENSION 30 ML UDCUP PO PRN (15:05)
[2017-05-29 15:33] VITALS: BP 144/69
[2017-05-29] MEDS: ACETAMINOPHEN 325 MG TABLET PO PRN (16:38)
[2017-05-29 19:16] VITALS: BP 131/65
[2017-05-29] MEDS: ZOLPIDEM TARTRATE 10 MG TABLET PO PRN (21:47)
[2017-05-30] VITALS (8 sets, daily range): BP systolic 108–206; BP diastolic 48–103
[2017-05-30] MEDS: HEPARIN SODIUM,PORCINE 5,000 UNITS/ML VIAL SQ SCH ×3 (00:27→16:24)
[2017-05-30] MEDS: MORPHINE SULFATE 2 MG/ML SYRINGE IVP PRN ×2 (06:47→21:41)
[2017-05-30] MEDS: SEVELAMER CARBONATE 800 MG TABLET PO SCH ×3 (08:00→17:49)
[2017-05-30] MEDS ORDERED: SODIUM CHLORIDE 0.9% 2,000 ML IV ONE (08:14)
[2017-05-30] MEDS ORDERED: HEPARIN SODIUM,PORCINE 1,000 UNITS/ML VIAL IVP ONE ×4 (08:15→22:06)
[2017-05-30] MEDS ORDERED: MANNITOL 25%-12.5 GM/50 ML VIAL IVP PRN (08:30)
[2017-05-30] MEDS: IBUPROFEN 600 MG TABLET PO SCH ×3 (08:30→17:49)
[2017-05-30 08:36] LABS: HEMATOCRIT 26.7 % (41-53); HEMOGLOBIN 8.4 g/dL (13.5-17.5); MEAN CORPUSCULAR HEMOGLOBIN 23.8 pg (26.0-34.0); MEAN CORPUSCULAR HGB CONC 31.6 G/dL (31.0-37.0); MEAN CORPUSCULAR VOLUME 75 fL (80-100); PLATELET COUNT (AUTO) 269 K/uL (150-450); RED BLOOD CELL COUNT(AUTO) 3.55 MIL/uL (4.50-5.90); RED CELL DISTRIBUTION WIDTH 21.4 % (11.5-14.5); WHITE BLOOD COUNT (AUTO) 5.1 K/uL (4.5-11.0)
[2017-05-30] MEDS: -EPOGEN NOTE- MISC SCH (09:00)
[2017-05-30] MEDS: FUROSEMIDE 80 MG TABLET PO SCH (09:00)
[2017-05-30] MEDS ORDERED: MORPHINE SULFATE 2 MG/ML SYRINGE IVP ONE (09:15)
[2017-05-30 09:33] LABS: BAND NEUTROPHILS % (MANUAL) 3 % (1-5); EOSINOPHILS % (MANUAL) 9 % (1-6); LYMPHOCYTES % (MANUAL) 16 % (22-44); RBC MORPHOLOGY COMMENT ABNORMAL RBC MORPH; TOTAL CELLS COUNTED 100
[2017-05-30] MEDS: ISOSORBIDE MONONITRATE 30 MG ER TABLET PO SCH ×3 (10:29→20:42)
[2017-05-30] MEDS: HydrALAZINE HCL 50 MG TABLET PO SCH ×2 (10:29→16:23)
[2017-05-30] MEDS: LABETALOL HCL 100 MG TABLET PO SCH ×3 (11:03→20:42)
[2017-05-30] MEDS: NIFEdipine 90 MG ER TABLET PO SCH (14:15)
[2017-05-30] MEDS: PANTOPRAZOLE SODIUM 40 MG DR TABLET PO SCH (14:16)
[2017-05-30] MEDS: ASPIRIN 81 MG CHEWABLE TABLET PO SCH (14:16)
[2017-05-30] MEDS: VITAMIN B COMP/VIT C/FOLIC ACID CAPSULE PO SCH (14:16)
[2017-05-30] MEDS: DOCUSATE SODIUM 100 MG CAPSULE PO SCH ×2 (14:16→20:42)
[2017-05-30] MEDS: HydrALAZINE HCL 20 MG/ML VIAL IVP PRN (15:38)
[2017-05-30] MEDS: EPOETIN ALFA 10,000 UNITS/ML VIAL SQ PRN (17:55)
[2017-05-30] MEDS: ZOLPIDEM TARTRATE 10 MG TABLET PO PRN (21:41)
[2017-05-31] VITALS (7 sets, daily range): BP systolic 131–158; BP diastolic 51–88
[2017-05-31] MEDS: HEPARIN SODIUM,PORCINE 5,000 UNITS/ML VIAL SQ SCH ×3 (02:53→16:24)
[2017-05-31] MEDS: HydrALAZINE HCL 50 MG TABLET PO SCH ×4 (02:54→21:43)
[2017-05-31] MEDS: SEVELAMER CARBONATE 800 MG TABLET PO SCH (08:26)
[2017-05-31] MEDS: IBUPROFEN 600 MG TABLET PO SCH ×2 (08:26→12:21)
[2017-05-31] MEDS: VITAMIN B COMP/VIT C/FOLIC ACID CAPSULE PO SCH (08:27)
[2017-05-31] MEDS: LABETALOL HCL 100 MG TABLET PO SCH ×3 (08:28→21:52)
[2017-05-31] MEDS: PANTOPRAZOLE SODIUM 40 MG DR TABLET PO SCH (08:28)
[2017-05-31] MEDS: ASPIRIN 81 MG CHEWABLE TABLET PO SCH (08:29)
[2017-05-31] MEDS: ISOSORBIDE MONONITRATE 30 MG ER TABLET PO SCH ×2 (08:29→21:43)
[2017-05-31] MEDS: DOCUSATE SODIUM 100 MG CAPSULE PO SCH ×2 (08:29→21:43)
[2017-05-31] MEDS: NIFEdipine 90 MG ER TABLET PO SCH (08:30)
[2017-05-31] MEDS: -EPOGEN NOTE- MISC SCH (09:00)
[2017-05-31 11:13] LABS: CALCIUM, TOTAL 8.2 mg/dL (8.8-10.5); CREATININE 2.87 mg/dL (0.60-1.30); PHOSPHORUS 1.9 mg/dL (2.5-4.9); POTASSIUM 3.8 mmol/L (3.5-5.1)
[2017-05-31 15:49] LABS: ALBUMIN (IFE & ELECTROPHOR) 3.1 g/dL (2.9-4.4); ALBUMIN/GLOBULIN RATIO (IFE) 1.2 (0.7-1.7); ALPHA-2 (IFE & PEP) 0.5 g/dL (0.4-1.0); IGG (IMMUNOFIXATION) 1471 mg/dL (700-1600); M-SPIKE (IEP) Not Observed g/dL (Not Observed); TOTAL PROTEIN 5.9 g/dL (6.0-8.5)
[2017-05-31] MEDS ORDERED: COLCHICINE 0.6 MG TABLET PO ONE (17:00)
[2017-05-31] MEDS: HYDROCODONE/ACETAMINOPHEN 5-325 MG TABLET PO PRN (21:42)
[2017-05-31] MEDS: ZOLPIDEM TARTRATE 10 MG TABLET PO PRN (21:48)
[2017-05-31] MEDS: MAGNESIUM HYDROXIDE SUSPENSION 30 ML UDCUP PO PRN (21:48)
[2017-06-01] MEDS: HEPARIN SODIUM,PORCINE 5,000 UNITS/ML VIAL SQ SCH ×3 (00:01→15:58)
[2017-06-01 04:47] VITALS: BP 154/75
[2017-06-01] MEDS ORDERED: SODIUM CHLORIDE 0.9% 2,000 ML IV ONE (06:10)
[2017-06-01 06:31] LABS: HEMATOCRIT 24.2 % (41-53); HEMOGLOBIN 7.7 g/dL (13.5-17.5); MEAN CORPUSCULAR HGB CONC 31.7 G/dL (31.0-37.0); MEAN CORPUSCULAR VOLUME 76 fL (80-100); PLATELET COUNT (AUTO) 255 K/uL (150-450); RED BLOOD CELL COUNT(AUTO) 3.19 MIL/uL (4.50-5.90); RED CELL DISTRIBUTION WIDTH 22.7 % (11.5-14.5); WHITE BLOOD COUNT (AUTO) 5.9 K/uL (4.5-11.0)
[2017-06-01 07:32] LABS: CALCIUM, TOTAL 7.9 mg/dL (8.8-10.5); CREATININE 3.54 mg/dL (0.60-1.30); POTASSIUM 3.6 mmol/L (3.5-5.1)
[2017-06-01 07:40] LABS: BASOPHILS % (MANUAL) 1 % (0-2); EOSINOPHILS % (MANUAL) 12 % (1-6); LYMPHOCYTES % (MANUAL) 13 % (22-44); TOTAL CELLS COUNTED 100
[2017-06-01 07:56] VITALS: BP 181/92
[2017-06-01] MEDS: HydrALAZINE HCL 50 MG TABLET PO SCH ×3 (09:57→20:11)
[2017-06-01] MEDS: FUROSEMIDE 80 MG TABLET PO SCH (11:18)
[2017-06-01] MEDS: DOCUSATE SODIUM 100 MG CAPSULE PO SCH ×2 (11:18→20:11)
[2017-06-01] MEDS: ISOSORBIDE MONONITRATE 30 MG ER TABLET PO SCH ×2 (11:18→20:11)
[2017-06-01] MEDS: NIFEdipine 90 MG ER TABLET PO SCH (11:18)
[2017-06-01] MEDS: VITAMIN B COMP/VIT C/FOLIC ACID CAPSULE PO SCH (11:18)
[2017-06-01] MEDS: PANTOPRAZOLE SODIUM 40 MG DR TABLET PO SCH (11:18)
[2017-06-01] MEDS: HYDROCODONE/ACETAMINOPHEN 5-325 MG TABLET PO PRN ×2 (11:19→20:12)
[2017-06-01] MEDS: ASPIRIN 81 MG CHEWABLE TABLET PO SCH (11:19)
[2017-06-01] MEDS: LABETALOL HCL 100 MG TABLET PO SCH ×3 (11:19→20:13)
[2017-06-01] MEDS: -EPOGEN NOTE- MISC SCH (11:24)
[2017-06-01] MEDS: EPOETIN ALFA 10,000 UNITS/ML VIAL SQ PRN (11:24)
[2017-06-01] MEDS ORDERED: HEPARIN SODIUM,PORCINE 1,000 UNITS/ML VIAL IVP ONE ×3 (11:45→14:19)
[2017-06-01 11:46] VITALS: BP 190/96
[2017-06-01 15:48] VITALS: BP 176/88
[2017-06-01] MEDS: MAGNESIUM HYDROXIDE SUSPENSION 30 ML UDCUP PO PRN (20:11)
[2017-06-01] MEDS: ZOLPIDEM TARTRATE 10 MG TABLET PO PRN (20:12)
[2017-06-01 23:16] VITALS: BP 142/65
[2017-06-02] MEDS: HEPARIN SODIUM,PORCINE 5,000 UNITS/ML VIAL SQ SCH ×4 (00:19→23:29)
[2017-06-02] MEDS: MORPHINE SULFATE 2 MG/ML SYRINGE IVP PRN (00:34)
[2017-06-02 04:42] VITALS: BP 136/64
[2017-06-02 07:28] VITALS: BP 168/75
[2017-06-02] MEDS: -EPOGEN NOTE- MISC SCH (09:00)
[2017-06-02] MEDS: PANTOPRAZOLE SODIUM 40 MG DR TABLET PO SCH (09:10)
[2017-06-02] MEDS: LABETALOL HCL 100 MG TABLET PO SCH ×3 (09:10→20:33)
[2017-06-02] MEDS: HydrALAZINE HCL 50 MG TABLET PO SCH ×3 (09:10→20:33)
[2017-06-02] MEDS: ASPIRIN 81 MG CHEWABLE TABLET PO SCH (09:10)
[2017-06-02] MEDS: ISOSORBIDE MONONITRATE 30 MG ER TABLET PO SCH ×2 (09:10→20:33)
[2017-06-02] MEDS: HYDROCODONE/ACETAMINOPHEN 5-325 MG TABLET PO PRN ×2 (10:21→19:52)
[2017-06-02] MEDS: VITAMIN B COMP/VIT C/FOLIC ACID CAPSULE PO SCH (10:21)
[2017-06-02] MEDS: FUROSEMIDE 80 MG TABLET PO SCH (10:21)
[2017-06-02] MEDS: NIFEdipine 90 MG ER TABLET PO SCH (10:21)
[2017-06-02] MEDS: DOCUSATE SODIUM 100 MG CAPSULE PO SCH ×2 (10:22→20:33)
[2017-06-02 11:40] VITALS: BP 163/70
[2017-06-02 15:39] VITALS: BP 164/78
[2017-06-02 19:24] VITALS: BP 158/85
[2017-06-02] MEDS: MAGNESIUM HYDROXIDE SUSPENSION 30 ML UDCUP PO PRN (19:40)
[2017-06-02] MEDS: ZOLPIDEM TARTRATE 10 MG TABLET PO PRN (21:20)
[2017-06-02 23:35] VITALS: BP 174/78
[2017-06-02] MEDS: HydrALAZINE HCL 20 MG/ML VIAL IVP PRN (23:38)
[2017-06-03] MEDS: HYDROCODONE/ACETAMINOPHEN 5-325 MG TABLET PO PRN ×3 (03:34→16:01)
[2017-06-03 04:29] VITALS: BP 122/57
[2017-06-03] MEDS: MORPHINE SULFATE 2 MG/ML SYRINGE IVP PRN ×2 (04:31→19:43)
[2017-06-03 06:26] LABS: BASOPHILS % (AUTO) 0.1 % (0.0-2.0); HEMATOCRIT 24.3 % (41-53); HEMOGLOBIN 7.7 g/dL (13.5-17.5); LYMPHOCYTES # (AUTO) 0.5 K/uL (1.0-4.8); LYMPHOCYTES % (AUTO) 8.3 % (22.0-44.0); MEAN CORPUSCULAR HEMOGLOBIN 24.3 pg (26.0-34.0); MEAN CORPUSCULAR HGB CONC 31.8 G/dL (31.0-37.0); MEAN CORPUSCULAR VOLUME 76 fL (80-100); MONOCYTES # (AUTO) 0.5 K/uL (0.1-1.0); MONOCYTES % (AUTO) 7.8 % (2.0-9.0); NEUTROPHILS # (AUTO) 4.8 K/uL (1.8-7.7); NEUTROPHILS % (AUTO) 73.8 % (40.0-70.0); PLATELET COUNT (AUTO) 247 K/uL (150-450); RED BLOOD CELL COUNT(AUTO) 3.18 MIL/uL (4.50-5.90); RED CELL DISTRIBUTION WIDTH 24.5 % (11.5-14.5); WHITE BLOOD COUNT (AUTO) 6.5 K/uL (4.5-11.0)
[2017-06-03 06:47] LABS: CALCIUM, TOTAL 8.2 mg/dL (8.8-10.5); CREATININE 4.09 mg/dL (0.60-1.30); MAGNESIUM 2.3 mg/dL (1.80-2.40); POTASSIUM 4.2 mmol/L (3.5-5.1)
[2017-06-03 06:50] LABS: PHOSPHORUS 1.3 mg/dL (2.5-4.9)
[2017-06-03] MEDS ORDERED: SODIUM PHOS,M-BASIC-D-BASIC 30 MMOL in DEXTROSE 5%-WATER 250 ML IV ONE (07:00)
[2017-06-03 07:17] VITALS: BP 138/67
[2017-06-03 07:59] LABS: RBC MORPHOLOGY COMMENT ABNORMAL RBC MORPH
[2017-06-03] MEDS: ASPIRIN 81 MG CHEWABLE TABLET PO SCH (08:07)
[2017-06-03] MEDS: VITAMIN B COMP/VIT C/FOLIC ACID CAPSULE PO SCH (08:07)
[2017-06-03] MEDS: PANTOPRAZOLE SODIUM 40 MG DR TABLET PO SCH (08:07)
[2017-06-03] MEDS: LABETALOL HCL 100 MG TABLET PO SCH ×3 (08:07→20:28)
[2017-06-03] MEDS: DOCUSATE SODIUM 100 MG CAPSULE PO SCH ×2 (08:07→20:28)
[2017-06-03] MEDS: HydrALAZINE HCL 50 MG TABLET PO SCH ×3 (08:07→20:28)
[2017-06-03] MEDS: -EPOGEN NOTE- MISC SCH (08:08)
[2017-06-03] MEDS: HEPARIN SODIUM,PORCINE 5,000 UNITS/ML VIAL SQ SCH ×2 (08:08→16:00)
[2017-06-03] MEDS ORDERED: SODIUM CHLORIDE 0.9% 500 ML IV ONE (09:30)
[2017-06-03] MEDS ORDERED: EPOETIN ALFA 10,000 UNITS/ML 2 ML VIAL SQ PRN (09:45)
[2017-06-03] MEDS: NIFEdipine 90 MG ER TABLET PO SCH (09:57)
[2017-06-03] MEDS: ISOSORBIDE MONONITRATE 30 MG ER TABLET PO SCH ×2 (09:58→20:28)
[2017-06-03] MEDS ORDERED: POTASSIUM PHOS/SODIUM PHOS MIXTURE 1 POWDER PACKET PO ONE (10:00)
[2017-06-03 10:02] VITALS: BP 150/78
[2017-06-03 10:58] VITALS: BP 157/102
[2017-06-03] MEDS ORDERED: IBUPROFEN 600 MG TABLET PO ONE (11:00)
[2017-06-03 15:07] VITALS: BP 153/74
[2017-06-03] MEDS ORDERED: IOVERSOL 320 MG/ML 100 ML VIAL ONE (17:19)
[2017-06-03 19:31] VITALS: BP 163/82
[2017-06-04 00:04] VITALS: BP 169/89
[2017-06-04] MEDS: MORPHINE SULFATE 2 MG/ML SYRINGE IVP PRN ×3 (00:15→15:34)
[2017-06-04] MEDS: ZOLPIDEM TARTRATE 10 MG TABLET PO PRN ×2 (02:10→20:06)
[2017-06-04 06:59] VITALS: BP 155/103
[2017-06-04 07:15] VITALS: BP 168/81
[2017-06-04] MEDS ORDERED: SODIUM CHLORIDE 0.9% 2,000 ML IV ONE (07:42)
[2017-06-04 07:44] LABS: PHOSPHORUS 2.6 mg/dL (2.5-4.9)
[2017-06-04] MEDS: HYDROCODONE/ACETAMINOPHEN 5-325 MG TABLET PO PRN (07:59)
[2017-06-04] MEDS: HEPARIN SODIUM,PORCINE 5,000 UNITS/ML VIAL SQ SCH ×3 (08:00→15:34)
[2017-06-04] MEDS: NIFEdipine 90 MG ER TABLET PO SCH (09:00)
[2017-06-04] MEDS: VITAMIN B COMP/VIT C/FOLIC ACID CAPSULE PO SCH (09:00)
[2017-06-04] MEDS: ASPIRIN 81 MG CHEWABLE TABLET PO SCH (09:00)
[2017-06-04] MEDS: PANTOPRAZOLE SODIUM 40 MG DR TABLET PO SCH (09:00)
[2017-06-04] MEDS: DOCUSATE SODIUM 100 MG CAPSULE PO SCH ×2 (09:00→20:06)
[2017-06-04] MEDS: ISOSORBIDE MONONITRATE 30 MG ER TABLET PO SCH ×2 (09:00→20:07)
[2017-06-04] MEDS: -EPOGEN NOTE- MISC SCH (09:00)
[2017-06-04] MEDS: HydrALAZINE HCL 50 MG TABLET PO SCH ×3 (09:00→20:06)
[2017-06-04] MEDS: LABETALOL HCL 100 MG TABLET PO SCH ×3 (09:00→20:06)
[2017-06-04 11:25] VITALS: BP 190/92
[2017-06-04 12:00] LABS: CALCIUM, TOTAL 8.5 mg/dL (8.8-10.5); CREATININE 4.44 mg/dL (0.60-1.30); POTASSIUM 4.4 mmol/L (3.5-5.1)
[2017-06-04] MEDS: HydrALAZINE HCL 20 MG/ML VIAL IVP PRN (12:22)
[2017-06-04] MEDS: IBUPROFEN 600 MG TABLET PO PRN ×2 (12:35→20:07)
[2017-06-04] MEDS ORDERED: LIDOCAINE HCL/PF 1% 2 ML VIAL ID PRN (14:00)
[2017-06-04 15:37] VITALS: BP 170/88
[2017-06-04 19:45] VITALS: BP 171/80
[2017-06-05 00:07] VITALS: BP 155/72
[2017-06-05 05:23] VITALS: BP 159/83
[2017-06-05 06:19] LABS: HEMATOCRIT 25.7 % (41-53); HEMOGLOBIN 8.1 g/dL (13.5-17.5); MEAN CORPUSCULAR HEMOGLOBIN 24.6 pg (26.0-34.0); MEAN CORPUSCULAR HGB CONC 31.6 G/dL (31.0-37.0); MEAN CORPUSCULAR VOLUME 78 fL (80-100); PLATELET COUNT (AUTO) 226 K/uL (150-450); RED CELL DISTRIBUTION WIDTH 26.8 % (11.5-14.5); WHITE BLOOD COUNT (AUTO) 5.9 K/uL (4.5-11.0)
[2017-06-05 07:11] VITALS: BP 188/101
[2017-06-05] MEDS: ISOSORBIDE MONONITRATE 30 MG ER TABLET PO SCH ×2 (07:34→20:50)
[2017-06-05] MEDS: ASPIRIN 81 MG CHEWABLE TABLET PO SCH (07:37)
[2017-06-05] MEDS: FUROSEMIDE 80 MG TABLET PO SCH (07:37)
[2017-06-05] MEDS: HydrALAZINE HCL 50 MG TABLET PO SCH ×3 (07:38→20:50)
[2017-06-05] MEDS: VITAMIN B COMP/VIT C/FOLIC ACID CAPSULE PO SCH (07:38)
[2017-06-05] MEDS: DOCUSATE SODIUM 100 MG CAPSULE PO SCH ×2 (07:39→20:50)
[2017-06-05] MEDS: NIFEdipine 90 MG ER TABLET PO SCH (07:39)
[2017-06-05] MEDS: LABETALOL HCL 100 MG TABLET PO SCH ×3 (07:39→20:50)
[2017-06-05] MEDS: HydrALAZINE HCL 20 MG/ML VIAL IVP PRN (07:39)
[2017-06-05] MEDS: PANTOPRAZOLE SODIUM 40 MG DR TABLET PO SCH (07:39)
[2017-06-05] MEDS: -EPOGEN NOTE- MISC SCH (07:47)
[2017-06-05 09:18] LABS: ALPHA-1 URINE (ELP) 10.3 %; ALPHA-2 URINE(ELP) 8.4 %; BETA URINE(ELP) 18.8 %; GAMMA URINE(ELP) 15.7 %; TOTAL PROTEIN URINE 245.1 mg/dL (Not Estab.)
[2017-06-05 09:24] LABS: EOSINOPHILS % (MANUAL) 11 % (1-6); LYMPHOCYTES % (MANUAL) 12 % (22-44); TOTAL CELLS COUNTED 100
[2017-06-05 09:26] LABS: RBC MORPHOLOGY COMMENT ABNORMAL R
[2017-06-05] MEDS ORDERED: SODIUM CHLORIDE 0.9% 1,000 ML IV ONE ×2 (11:10→11:15)
[2017-06-05 11:24] VITALS: BP 176/84
[2017-06-05] MEDS ORDERED: LIDOCAINE HCL/PF 1% 2 ML VIAL INJ ONE (12:00)
[2017-06-05] MEDS ORDERED: FentaNYL CITRATE-PF 100 MCG/2 ML VIAL IVP ONE (12:00)
[2017-06-05] MEDS ORDERED: EPHEDrine SULFATE 50 MG/ML VIAL IM ONE (12:00)
[2017-06-05] MEDS ORDERED: PROPOFOL 1% 20 ML VIAL IVP ONE (12:00)
[2017-06-05] MEDS ORDERED: MIDAZOLAM HCL 2 MG/2 ML VIAL IVP ONE (12:00)
[2017-06-05] MEDS ORDERED: LIDOCAINE HCL/PF 2% 5 ML VIAL INJ ONE (12:00)
[2017-06-05] MEDS ORDERED: DEXAMETHASONE SOD PHOS 4 MG/ML VIAL IVP ONE (12:00)
[2017-06-05] MEDS ORDERED: 0.9% SODIUM CHLORIDE 10 ML VIAL IVP ONE (12:00)
[2017-06-05] MEDS ORDERED: LIDOCAINE HCL/PF 1% 2 ML VIAL ID PRN (13:30)
[2017-06-05 14:12] LABS: GLUCOSE,POINT OF CARE 74 MG/DL (70-110)
[2017-06-05] MEDS ORDERED: LIDOCAINE HCL/PF 1% 30 ML VIAL ONE (14:55)
[2017-06-05] MEDS ORDERED: HYDROmorphone 2 MG/ML SYRINGE IVP PRN (17:30)
[2017-06-05] MEDS ORDERED: MEPERIDINE-PF 25 MG/ML SYRINGE IVP PRN (17:30)
[2017-06-05] MEDS ORDERED: FentaNYL CITRATE-PF 100 MCG/2 ML VIAL IVP PRN (17:30)
[2017-06-05] MEDS ORDERED: LIDOCAINE HCL/PF 1% 2 ML VIAL ONE (17:51)
[2017-06-05] MEDS: MORPHINE SULFATE 2 MG/ML SYRINGE IVP PRN (18:29)
[2017-06-05 18:38] VITALS: BP 171/72
[2017-06-05 20:04] VITALS: BP 142/81
[2017-06-05] MEDS: OXYGEN THERAPY IH SCH (20:50)
[2017-06-05] MEDS: ZOLPIDEM TARTRATE 10 MG TABLET PO PRN (20:50)
[2017-06-05] MEDS: HYDROCODONE/ACETAMINOPHEN 5-325 MG TABLET PO PRN (20:50)
[2017-06-06] VITALS (7 sets, daily range): BP systolic 136–171; BP diastolic 59–91
[2017-06-06] MEDS: MORPHINE SULFATE 2 MG/ML SYRINGE IVP PRN ×3 (01:02→09:54)
[2017-06-06 06:30] LABS: INR 1.1 (0.9-1.1); PROTHROMBIN TIME 11.4 SEC (9.4-11.6)
[2017-06-06 06:34] LABS: CALCIUM, TOTAL 8.7 mg/dL (8.8-10.5); CREATININE 4.17 mg/dL (0.60-1.30); EOSINOPHILS % (AUTO) 0.2 % (1.0-6.0); HEMATOCRIT 31.4 % (41-53); LYMPHOCYTES # (AUTO) 0.4 K/uL (1.0-4.8); MEAN CORPUSCULAR HEMOGLOBIN 24.6 pg (26.0-34.0); MEAN CORPUSCULAR VOLUME 77 fL (80-100); MONOCYTES # (AUTO) 0.6 K/uL (0.1-1.0); MONOCYTES % (AUTO) 5.7 % (2.0-9.0); NEUTROPHILS # (AUTO) 9.5 K/uL (1.8-7.7); PHOSPHORUS 3.3 mg/dL (2.5-4.9); PLATELET COUNT (AUTO) 305 K/uL (150-450); POTASSIUM 4.1 mmol/L (3.5-5.1); RED BLOOD CELL COUNT(AUTO) 4.08 MIL/uL (4.50-5.90); RED CELL DISTRIBUTION WIDTH 26.3 % (11.5-14.5); WHITE BLOOD COUNT (AUTO) 10.5 K/uL (4.5-11.0)
[2017-06-06 06:51] LABS: NEUTROPHILS % (AUTO) 90.1 % (40.0-70.0)
[2017-06-06] MEDS ORDERED: LIDOCAINE HCL/PF 1% 5 ML VIAL ONE (07:58)
[2017-06-06] MEDS: OXYGEN THERAPY IH SCH ×2 (08:00→21:13)
[2017-06-06] MEDS: -EPOGEN NOTE- MISC SCH (09:29)
[2017-06-06] MEDS: DOCUSATE SODIUM 100 MG CAPSULE PO SCH ×2 (09:50→21:13)
[2017-06-06] MEDS: ASPIRIN 81 MG CHEWABLE TABLET PO SCH (09:51)
[2017-06-06] MEDS: NIFEdipine 90 MG ER TABLET PO SCH (09:51)
[2017-06-06] MEDS: PANTOPRAZOLE SODIUM 40 MG DR TABLET PO SCH (09:51)
[2017-06-06] MEDS: LABETALOL HCL 100 MG TABLET PO SCH ×3 (09:52→21:13)
[2017-06-06] MEDS: VITAMIN B COMP/VIT C/FOLIC ACID CAPSULE PO SCH (09:52)
[2017-06-06] MEDS: ISOSORBIDE MONONITRATE 30 MG ER TABLET PO SCH ×2 (09:52→21:13)
[2017-06-06] MEDS: HydrALAZINE HCL 50 MG TABLET PO SCH ×3 (09:53→21:16)
[2017-06-06] MEDS: SIMETHICONE 80 MG CHEWABLE TABLET CHEW PRN (11:46)
[2017-06-06] MEDS: LACTULOSE 20 GM/30 ML SOLUTION UDCUP PO SCH ×2 (11:46→21:13)
[2017-06-06] MEDS: ZOLPIDEM TARTRATE 10 MG TABLET PO PRN (21:18)
[2017-06-06] MEDS: HYDROCODONE/ACETAMINOPHEN 5-325 MG TABLET PO PRN (23:14)
[2017-06-07] VITALS (7 sets, daily range): BP systolic 124–166; BP diastolic 58–93
[2017-06-07] MEDS: MORPHINE SULFATE 2 MG/ML SYRINGE IVP PRN (06:19)
[2017-06-07] MEDS: OXYGEN THERAPY IH SCH ×2 (08:00→20:25)
[2017-06-07] MEDS: LACTULOSE 20 GM/30 ML SOLUTION UDCUP PO SCH ×2 (09:00→20:24)
[2017-06-07] MEDS: -EPOGEN NOTE- MISC SCH (09:00)
[2017-06-07] MEDS ORDERED: LIDOCAINE HCL/PF 1% 2 ML VIAL ID PRN (10:45)
[2017-06-07] MEDS: ISOSORBIDE MONONITRATE 30 MG ER TABLET PO SCH ×2 (11:04→20:24)
[2017-06-07] MEDS: VITAMIN B COMP/VIT C/FOLIC ACID CAPSULE PO SCH (11:04)
[2017-06-07] MEDS: DOCUSATE SODIUM 100 MG CAPSULE PO SCH ×2 (11:04→20:24)
[2017-06-07] MEDS: NIFEdipine 90 MG ER TABLET PO SCH (11:05)
[2017-06-07] MEDS: ASPIRIN 81 MG CHEWABLE TABLET PO SCH (11:05)
[2017-06-07] MEDS: PANTOPRAZOLE SODIUM 40 MG DR TABLET PO SCH (11:05)
[2017-06-07] MEDS: LABETALOL HCL 100 MG TABLET PO SCH ×3 (11:05→20:24)
[2017-06-07] MEDS: FUROSEMIDE 80 MG TABLET PO SCH (11:06)
[2017-06-07] MEDS: HydrALAZINE HCL 50 MG TABLET PO SCH ×3 (11:06→20:24)
[2017-06-07 12:29] LABS: INR 1.1 (0.9-1.1); PROTHROMBIN TIME 11.4 SEC (9.4-11.6)
[2017-06-07] MEDS ORDERED: HEPARIN SODIUM,PORCINE 1,000 UNITS/ML 10 ML VIAL ONE (13:19)
[2017-06-07] MEDS ORDERED: LIDOCAINE HCL/PF 1% 30 ML VIAL ONE (13:19)
[2017-06-07] MEDS ORDERED: HEPARIN SODIUM 1000 UNITS/NS 500 ML ONE (13:19)
[2017-06-07] MEDS: VALSARTAN 80 MG TABLET PO SCH (14:45)
[2017-06-07] MEDS ORDERED: IOHEXOL 240 MG/ML 50 ML VIAL ONE (15:03)
[2017-06-07] MEDS ORDERED: FentaNYL CITRATE-PF 100 MCG/2 ML VIAL ONE (16:09)
[2017-06-07] MEDS ORDERED: MIDAZOLAM HCL 2 MG/2 ML VIAL ONE (16:10)
[2017-06-07] MEDS: HYDROCODONE/ACETAMINOPHEN 5-325 MG TABLET PO PRN (20:31)
[2017-06-07] MEDS: ZOLPIDEM TARTRATE 10 MG TABLET PO PRN (20:31)
[2017-06-08 05:17] VITALS: BP 125/65
[2017-06-08 07:13] VITALS: BP 147/65
[2017-06-08] MEDS: OXYGEN THERAPY IH SCH ×2 (08:00→20:10)
[2017-06-08] MEDS: PANTOPRAZOLE SODIUM 40 MG DR TABLET PO SCH (08:58)
[2017-06-08] MEDS: VITAMIN B COMP/VIT C/FOLIC ACID CAPSULE PO SCH (08:58)
[2017-06-08] MEDS: SIMETHICONE 80 MG CHEWABLE TABLET CHEW PRN (08:58)
[2017-06-08] MEDS: LABETALOL HCL 100 MG TABLET PO SCH ×3 (09:00→20:09)
[2017-06-08] MEDS: NIFEdipine 90 MG ER TABLET PO SCH (09:00)
[2017-06-08] MEDS: -EPOGEN NOTE- MISC SCH (09:00)
[2017-06-08] MEDS: ISOSORBIDE MONONITRATE 30 MG ER TABLET PO SCH ×2 (09:00→20:09)
[2017-06-08] MEDS: DOCUSATE SODIUM 100 MG CAPSULE PO SCH ×2 (09:00→20:09)
[2017-06-08] MEDS: VALSARTAN 80 MG TABLET PO SCH (09:00)
[2017-06-08] MEDS: HydrALAZINE HCL 50 MG TABLET PO SCH ×4 (09:00→20:09)
[2017-06-08] MEDS: ASPIRIN 81 MG CHEWABLE TABLET PO SCH (09:00)
[2017-06-08] MEDS: LACTULOSE 20 GM/30 ML SOLUTION UDCUP PO SCH (09:00)
[2017-06-08] MEDS ORDERED: SODIUM CHLORIDE 0.9% 2,000 ML IV ONE (09:05)
[2017-06-08] MEDS: HYDROCODONE/ACETAMINOPHEN 5-325 MG TABLET PO PRN ×2 (09:58→21:50)
[2017-06-08] MEDS ORDERED: LIDOCAINE HCL/PF 1% 2 ML VIAL ID PRN (10:15)
[2017-06-08] MEDS ORDERED: MANNITOL 25%-12.5 GM/50 ML VIAL IVP PRN (10:15)
[2017-06-08 11:25] VITALS: BP 170/75
[2017-06-08] MEDS ORDERED: LIDOCAINE HCL/PF 1% 2 ML VIAL INJ ONE (14:42)
[2017-06-08 16:07] VITALS: BP 152/76
[2017-06-08 19:55] VITALS: BP 181/84
[2017-06-08] MEDS: ZOLPIDEM TARTRATE 10 MG TABLET PO PRN (21:50)
[2017-06-08 23:45] VITALS: BP 172/87
[2017-06-09 05:32] VITALS: BP 188/80
[2017-06-09 07:13] VITALS: BP 187/99
[2017-06-09] MEDS: -EPOGEN NOTE- MISC SCH (09:00)
[2017-06-09] MEDS: HydrALAZINE HCL 50 MG TABLET PO SCH ×3 (09:39→20:18)
[2017-06-09] MEDS: DOCUSATE SODIUM 100 MG CAPSULE PO SCH ×2 (09:39→20:19)
[2017-06-09] MEDS: ASPIRIN 81 MG CHEWABLE TABLET PO SCH (09:39)
[2017-06-09] MEDS: VITAMIN B COMP/VIT C/FOLIC ACID CAPSULE PO SCH (09:39)
[2017-06-09] MEDS: PANTOPRAZOLE SODIUM 40 MG DR TABLET PO SCH (09:39)
[2017-06-09] MEDS: LABETALOL HCL 100 MG TABLET PO SCH ×3 (09:40→20:20)
[2017-06-09] MEDS: VALSARTAN 80 MG TABLET PO SCH ×2 (09:41→20:19)
[2017-06-09] MEDS: ISOSORBIDE MONONITRATE 30 MG ER TABLET PO SCH ×2 (09:42→20:19)
[2017-06-09] MEDS: NIFEdipine 90 MG ER TABLET PO SCH (09:43)
[2017-06-09] MEDS: OXYGEN THERAPY IH SCH ×2 (09:43→20:00)
[2017-06-09] MEDS: HYDROCODONE/ACETAMINOPHEN 5-325 MG TABLET PO PRN (09:51)
[2017-06-09 11:19] VITALS: BP 188/83
[2017-06-09] MEDS: HydrALAZINE HCL 20 MG/ML VIAL IVP PRN (11:29)
[2017-06-09 15:21] VITALS: BP 130/70
[2017-06-09 19:51] VITALS: BP 146/67
[2017-06-09] MEDS: ZOLPIDEM TARTRATE 10 MG TABLET PO PRN (20:21)
[2017-06-09] MEDS: IBUPROFEN 600 MG TABLET PO PRN (21:07)
[2017-06-09 23:52] VITALS: BP 140/69
[2017-06-10 04:38] VITALS: BP 115/54
[2017-06-10 07:51] VITALS: BP 142/111
[2017-06-10] MEDS: FUROSEMIDE 80 MG TABLET PO SCH (08:56)
[2017-06-10] MEDS: PANTOPRAZOLE SODIUM 40 MG DR TABLET PO SCH (08:56)
[2017-06-10] MEDS: ASPIRIN 81 MG CHEWABLE TABLET PO SCH (08:56)
[2017-06-10] MEDS: DOCUSATE SODIUM 100 MG CAPSULE PO SCH ×2 (08:57→20:07)
[2017-06-10] MEDS: OXYGEN THERAPY IH SCH (08:58)
[2017-06-10] MEDS: ISOSORBIDE MONONITRATE 30 MG ER TABLET PO SCH ×2 (09:00→20:07)
[2017-06-10] MEDS: LABETALOL HCL 100 MG TABLET PO SCH ×2 (09:00→16:50)
[2017-06-10] MEDS: NIFEdipine 90 MG ER TABLET PO SCH (09:00)
[2017-06-10] MEDS: VALSARTAN 80 MG TABLET PO SCH (09:00)
[2017-06-10] MEDS: HydrALAZINE HCL 50 MG TABLET PO SCH ×3 (09:00→20:07)
[2017-06-10] MEDS: VITAMIN B COMP/VIT C/FOLIC ACID CAPSULE PO SCH (09:00)
[2017-06-10] MEDS ORDERED: SODIUM CHLORIDE 0.9% 2,000 ML IV ONE (09:06)
[2017-06-10] MEDS: -EPOGEN NOTE- MISC SCH (10:15)
[2017-06-10] MEDS: HYDROCODONE/ACETAMINOPHEN 5-325 MG TABLET PO PRN (11:27)
[2017-06-10 11:36] VITALS: BP 185/99
[2017-06-10 16:08] VITALS: BP 163/85
[2017-06-10] MEDS ORDERED: ALBUMIN HUMAN 25%-12.5GM/50ML IV BOTTLE ONE (17:14)
[2017-06-10 19:34] VITALS: BP 166/79
[2017-06-10] MEDS: ZOLPIDEM TARTRATE 10 MG TABLET PO PRN (20:09)
[2017-06-11] VITALS (9 sets, daily range): BP systolic 131–195; BP diastolic 65–90
[2017-06-11] MEDS: LABETALOL HCL 100 MG TABLET PO SCH ×4 (00:34→22:46)
[2017-06-11] MEDS: VALSARTAN 80 MG TABLET PO SCH ×2 (00:34→08:12)
[2017-06-11] MEDS: OXYGEN THERAPY IH SCH ×2 (00:35→08:16)
[2017-06-11] MEDS: MORPHINE SULFATE 2 MG/ML SYRINGE IVP PRN ×2 (01:47→22:46)
[2017-06-11] MEDS: HydrALAZINE HCL 20 MG/ML VIAL IVP PRN (04:35)
[2017-06-11] MEDS: HYDROCODONE/ACETAMINOPHEN 5-325 MG TABLET PO PRN (04:35)
[2017-06-11 07:43] LABS: HEMOGLOBIN 8.9 g/dL (13.5-17.5); LYMPHOCYTES # (AUTO) 0.9 K/uL (1.0-4.8); MEAN CORPUSCULAR HEMOGLOBIN 23.9 pg (26.0-34.0); MEAN CORPUSCULAR HGB CONC 31.6 G/dL (31.0-37.0); MEAN CORPUSCULAR VOLUME 76 fL (80-100); MONOCYTES # (AUTO) 0.6 K/uL (0.1-1.0); MONOCYTES % (AUTO) 11.6 % (2.0-9.0); NEUTROPHILS # (AUTO) 2.7 K/uL (1.8-7.7); NEUTROPHILS % (AUTO) 50.1 % (40.0-70.0); PLATELET COUNT (AUTO) 347 K/uL (150-450); RED BLOOD CELL COUNT(AUTO) 3.71 MIL/uL (4.50-5.90); RED CELL DISTRIBUTION WIDTH 24.4 % (11.5-14.5); WHITE BLOOD COUNT (AUTO) 5.4 K/uL (4.5-11.0)
[2017-06-11 07:45] LABS: CALCIUM, TOTAL 8.3 mg/dL (8.8-10.5); CREATININE 3.44 mg/dL (0.60-1.30); PHOSPHORUS 3.3 mg/dL (2.5-4.9)
[2017-06-11 07:57] LABS: EOSINOPHILS % (AUTO) 22.3 % (1.0-6.0)
[2017-06-11] MEDS: -EPOGEN NOTE- MISC SCH (08:11)
[2017-06-11] MEDS: PANTOPRAZOLE SODIUM 40 MG DR TABLET PO SCH (08:12)
[2017-06-11] MEDS: DOCUSATE SODIUM 100 MG CAPSULE PO SCH ×2 (08:12→20:39)
[2017-06-11] MEDS: ASPIRIN 81 MG CHEWABLE TABLET PO SCH (08:12)
[2017-06-11] MEDS: SIMETHICONE 80 MG CHEWABLE TABLET CHEW PRN ×2 (08:12→20:39)
[2017-06-11] MEDS: HydrALAZINE HCL 50 MG TABLET PO SCH ×3 (08:12→20:39)
[2017-06-11] MEDS: NIFEdipine 90 MG ER TABLET PO SCH (08:12)
[2017-06-11] MEDS: VITAMIN B COMP/VIT C/FOLIC ACID CAPSULE PO SCH (08:12)
[2017-06-11] MEDS: ISOSORBIDE MONONITRATE 30 MG ER TABLET PO SCH ×2 (08:12→22:45)
[2017-06-11 10:08] LABS: RBC MORPHOLOGY COMMENT ABNORMAL RBC MORPH
[2017-06-11] MEDS: MAGNESIUM HYDROXIDE SUSPENSION 30 ML UDCUP PO PRN (20:22)
[2017-06-11] MEDS: VALSARTAN 160 MG TABLET PO SCH (20:39)
[2017-06-11] MEDS: ZOLPIDEM TARTRATE 10 MG TABLET PO PRN (22:46)
[2017-06-12 04:22] VITALS: BP 135/70
[2017-06-12] MEDS: MORPHINE SULFATE 2 MG/ML SYRINGE IVP PRN (04:33)
[2017-06-12] MEDS: SIMETHICONE 80 MG CHEWABLE TABLET CHEW PRN ×2 (04:36→11:51)
[2017-06-12] MEDS ORDERED: SODIUM CHLORIDE 0.9% 1,000 ML IV ONE ×2 (06:21→06:22)
[2017-06-12] MEDS ORDERED: MANNITOL 25%-12.5 GM/50 ML VIAL IVP PRN (06:30)
[2017-06-12] MEDS ORDERED: LIDOCAINE HCL/PF 1% 2 ML VIAL ID PRN (06:30)
[2017-06-12 06:43] LABS: CALCIUM, TOTAL 8.6 mg/dL (8.8-10.5); CREATININE 4.06 mg/dL (0.60-1.30); PHOSPHORUS 3.2 mg/dL (2.5-4.9); POTASSIUM 4.1 mmol/L (3.5-5.1)
[2017-06-12 07:46] VITALS: BP 109/71
[2017-06-12 09:00] VITALS: BP 163/73
[2017-06-12] MEDS: HydrALAZINE HCL 50 MG TABLET PO SCH (09:00)
[2017-06-12] MEDS ORDERED: ASPI81 PO (10:59)
[2017-06-12] MEDS ORDERED: VALS160T2 PO (10:59)
[2017-06-12] MEDS ORDERED: LABE100 PO (10:59)
[2017-06-12] MEDS ORDERED: FURO80 PO (10:59)
[2017-06-12] MEDS ORDERED: NIFE90TA38 PO (10:59)
[2017-06-12] MEDS ORDERED: HYDR-2924 PO ×2 (10:59→12:44)
[2017-06-12] MEDS ORDERED: ISOS30TA6 PO ×2 (10:59→12:44)
[2017-06-12] MEDS: HYDROCODONE/ACETAMINOPHEN 5-325 MG TABLET PO PRN (11:43)
[2017-06-12] MEDS: VITAMIN B COMP/VIT C/FOLIC ACID CAPSULE PO SCH (11:43)
[2017-06-12] MEDS: ISOSORBIDE MONONITRATE 30 MG ER TABLET PO SCH (11:43)
[2017-06-12] MEDS: OXYGEN THERAPY IH SCH ×2 (11:43→11:53)
[2017-06-12] MEDS: PANTOPRAZOLE SODIUM 40 MG DR TABLET PO SCH (11:44)
[2017-06-12] MEDS: VALSARTAN 160 MG TABLET PO SCH (11:44)
[2017-06-12] MEDS: ASPIRIN 81 MG CHEWABLE TABLET PO SCH (11:44)
[2017-06-12] MEDS: DOCUSATE SODIUM 100 MG CAPSULE PO SCH (11:44)
[2017-06-12] MEDS: LABETALOL HCL 100 MG TABLET PO SCH (11:45)
[2017-06-12] MEDS: NIFEdipine 90 MG ER TABLET PO SCH (11:46)
[2017-06-12 11:49] VITALS: BP 163/85
[2017-06-12] MEDS ORDERED: ASPI81TA33 PO (12:40)
[2017-06-12] MEDS ORDERED: LABE200T PO (12:40)
[2017-06-12] MEDS ORDERED: FOLI1CAP2 PO (12:55)
[2017-06-12 15:41] VITALS: BP 136/76
[2017-06-12] MEDS ORDERED: LIDOCAINE HCL/PF 1% 2 ML VIAL IM ONE (17:29)
[2017-06-13] MEDS ORDERED: FUROSEMIDE 80 MG TABLET PO SCH (09:00)
== END 2017-06-12 17:30 | disposition home or self-care (01) | DRG 182 ==
LOC: EMS 13:10 → 5S 18:13 → 5N 21:00 → 5S 06-05 18:45
PROVIDERS: ADMIT Internal Medicine; ATTEND Internal Medicine
PROC: 5A1D70Z Performance of Urinary Filtration, Intermittent, Less than 6 Hours Per Day (ICD-10-PCS; 2017-05-20)
PROC: 5A1D70Z Performance of Urinary Filtration, Intermittent, Less than 6 Hours Per Day (ICD-10-PCS; 2017-05-21)
PROC: 5A1D70Z Performance of Urinary Filtration, Intermittent, Less than 6 Hours Per Day (ICD-10-PCS; 2017-05-22)
PROC: 5A1D70Z Performance of Urinary Filtration, Intermittent, Less than 6 Hours Per Day (ICD-10-PCS; 2017-05-23)
PROC: 5A1D70Z Performance of Urinary Filtration, Intermittent, Less than 6 Hours Per Day (ICD-10-PCS; 2017-05-24)
PROC: 5A1D70Z Performance of Urinary Filtration, Intermittent, Less than 6 Hours Per Day (ICD-10-PCS; 2017-05-25)
PROC: 5A1D70Z Performance of Urinary Filtration, Intermittent, Less than 6 Hours Per Day (ICD-10-PCS; 2017-05-27)
PROC: 5A1D70Z Performance of Urinary Filtration, Intermittent, Less than 6 Hours Per Day (ICD-10-PCS; 2017-05-28)
PROC: 5A1D70Z Performance of Urinary Filtration, Intermittent, Less than 6 Hours Per Day (ICD-10-PCS; 2017-05-30)
PROC: 5A1D70Z Performance of Urinary Filtration, Intermittent, Less than 6 Hours Per Day (ICD-10-PCS; 2017-06-01)
PROC: 5A1D70Z Performance of Urinary Filtration, Intermittent, Less than 6 Hours Per Day (ICD-10-PCS; 2017-06-04)
PROC: 02BN3ZX Excision of Pericardium, Percutaneous Approach, Diagnostic (ICD-10-PCS; 2017-06-05)
PROC: 0W9D30Z Drainage of Pericardial Cavity with Drainage Device, Percutaneous Approach (ICD-10-PCS; principal; 2017-06-05 13:00)
PROC: 037Y3ZZ Dilation of Upper Artery, Percutaneous Approach (ICD-10-PCS; 2017-06-07)
DX: I13.2 Hypertensive heart and chronic kidney disease with heart failure and with stage 5 chronic kidney disease, or end stage renal disease (principal); E43 Unspecified severe protein-calorie malnutrition; N18.6 End stage renal disease; I31.3 Pericardial effusion (noninflammatory); E11.22 Type 2 diabetes mellitus with diabetic chronic kidney disease; I32 Pericarditis in diseases classified elsewhere; I50.31 Acute diastolic (congestive) heart failure; E83.39 Other disorders of phosphorus metabolism; D63.1 Anemia in chronic kidney disease; K43.9 Ventral hernia without obstruction or gangrene; M48.00 Spinal stenosis, site unspecified; N13.9 Obstructive and reflux uropathy, unspecified; N25.81 Secondary hyperparathyroidism of renal origin; Z79.899 Other long term (current) drug therapy; Z82.49 Family history of ischemic heart disease and other diseases of the circulatory system; Z83.3 Family history of diabetes mellitus; Z87.442 Personal history of urinary calculi; Z91.19 Patient's noncompliance with other medical treatment and regimen; Z99.2 Dependence on renal dialysis
CPT/HCPCS: 36245; 36561; 36590; 36870; 70450; 71250; 73201; 74176; 76881; 76937; 82164; 82575; 82728; 82784; 82962; 83540; 83550; 83615; 83735; 83970; 84100; 84155; 84156; 84165; 84166; 86334; 86850; 86900; 86901; 86920; 87015; 87070; 87081; 87101; 87205; 87252; 87340; 88108; 88305; 90935; 93005; 93306; 93308; 96374; 96375; 97110; 97116; 97162; 97530; 99285; J0360; J0636; J0690; J0885; J1100; J1644; J1756; J2250; J2270; J2704; J3010; J3490; J7030; J7040; J7050; J7060; P9047; Q9966

== ENCOUNTER 2018-04-24 16:00 | Emergency (ER) | payer MEDICAID, OTHER ==
[~2018-04-24] VITALS: Ht 177.8 cm; Wt 77.3 kg
[~2018-04-24 16:00] MED LIST changes: +ASPI81TA87 PO; +FOLI1CAP2 PO; +ISOS30TA6 PO; +LABE100 PO; -LABE200T PO; +LABE200T6 PO; +NIFE90TA38 PO; -SODI454P2 PO; -SUCR500T PO; +VALS160T2 PO
[2018-04-24 16:14] LABS: GLUCOSE,POINT OF CARE 101 MG/DL (70-110)
[2018-04-24 16:44] VITALS: BP 139/86
== END 2018-04-24 17:05 | disposition home or self-care (01) ==
LOC: EMS 16:01
DX: S05.31XA Ocular laceration without prolapse or loss of intraocular tissue, right eye, initial encounter (principal); S05.32XA Ocular laceration without prolapse or loss of intraocular tissue, left eye, initial encounter; I12.0 Hypertensive chronic kidney disease with stage 5 chronic kidney disease or end stage renal disease; E11.22 Type 2 diabetes mellitus with diabetic chronic kidney disease; N18.6 End stage renal disease; Z99.2 Dependence on renal dialysis; Z79.82 Long term (current) use of aspirin; X58.XXXA Exposure to other specified factors, initial encounter; Y93.89 Activity, other specified; Y92.89 Other specified places as the place of occurrence of the external cause; Y99.8 Other external cause status

== ENCOUNTER 2018-11-16 13:42 | Emergency (ER) | payer OTHER ==
[~2018-11-16] VITALS: Ht 182.9 cm; Wt 90.9 kg
[~2018-11-16 13:42] MED LIST changes: -ASPI81 PO; -FOLI1CAP2 PO; -FURO80 PO; -LABE100 PO; +LABE100T8 PO; -LABE200T6 PO; -NIFE90TA38 PO; -VALS160T2 PO
[2018-11-16] MEDS ORDERED: PYRI50TA13 PO (13:50)
[2018-11-16] MEDS ORDERED: LOSA50TA64 PO (13:50)
[2018-11-16] MEDS ORDERED: PANT40TA25 PO (13:50)
[2018-11-16 14:09] LABS: GLUCOSE,POINT OF CARE 116 MG/DL (70-110)
[2018-11-16] MEDS ORDERED: HYDROCODONE/ACETAMINOPHEN 5-325 MG TABLET PO ONE (14:45)
[2018-11-16 15:04] LABS: BASOPHILS % (AUTO) 0.5 % (0.0-2.0); EOSINOPHILS % (AUTO) 4.6 % (1.0-6.0); HEMATOCRIT 36.7 % (41-53); HEMOGLOBIN 11.9 g/dL (13.5-17.5); LYMPHOCYTES % (AUTO) 13.5 % (22.0-44.0); MEAN CORPUSCULAR HEMOGLOBIN 27.1 pg (26.0-34.0); MEAN CORPUSCULAR HGB CONC 32.5 G/dL (31.0-37.0); MEAN CORPUSCULAR VOLUME 83 fL (80-100); MONOCYTES # (AUTO) 0.9 K/uL (0.1-1.0); MONOCYTES % (AUTO) 12.4 % (2.0-9.0); NEUTROPHILS # (AUTO) 5.1 K/uL (1.8-7.7); PLATELET COUNT (AUTO) 191 K/uL (150-450); RED BLOOD CELL COUNT(AUTO) 4.41 MIL/uL (4.50-5.90); RED CELL DISTRIBUTION WIDTH 13.7 % (11.5-14.5)
[2018-11-16 15:18] LABS: CALCIUM, TOTAL 8.8 mg/dL (8.8-10.5); CREATININE 5.34 mg/dL (0.60-1.30); POTASSIUM 3.4 mmol/L (3.5-5.1)
[2018-11-16 15:24] LABS: ALBUMIN 3.8 g/dL (3.4-5.0); BILIRUBIN,TOTAL 0.4 mg/dL (0.1-1.0); TOTAL PROTEIN, SERUM 7.8 g/dL (6.4-8.2)
[2018-11-16 16:42] VITALS: BP 151/79
== END 2018-11-16 16:48 | disposition home or self-care (01) ==
LOC: EMS 13:45
DX: M25.511 Pain in right shoulder (principal); I10 Essential (primary) hypertension; E11.9 Type 2 diabetes mellitus without complications; Z79.82 Long term (current) use of aspirin; Z79.899 Other long term (current) drug therapy
CPT/HCPCS: 93005

== ENCOUNTER 2019-06-16 04:54 | Emergency (ER) | payer OTHER ==
[~2019-06-16] VITALS: Ht 182.9 cm; Wt 95.0 kg
[~2019-06-16 04:54] MED LIST changes: +LOSA50TA64 PO; -NIFE30TA5 PO; +PANT40TA25 PO; +PYRI50TA13 PO
[2019-06-16] MEDS ORDERED: VIT1CAPS26 PO (05:07)
[2019-06-16] MEDS ORDERED: HYDR-2924 PO (05:07)
[2019-06-16] MEDS ORDERED: PANT40TA25 PO (05:07)
[2019-06-16] MEDS ORDERED: SEVE800T27 PO (05:07)
[2019-06-16] MEDS ORDERED: TAMS-13 PO (05:07)
[2019-06-16] MEDS ORDERED: LOSA50TA64 PO (05:07)
[2019-06-16] MEDS ORDERED: ASPI-1182 PO (05:07)
[2019-06-16] MEDS ORDERED: PROPARACAINE HCL 0.5% 15 ML OPHTHALMIC SOLUTION OD ONE (06:15)
[2019-06-16] MEDS ORDERED: FLUORESCEIN SODIUM 1 MG STRIP ONE (06:18)
[2019-06-16] MEDS ORDERED: OxyCODONE HCL/ACETAMINOPHEN 5-325 MG TABLET PO ONE (06:30)
[2019-06-16 09:45] VITALS: BP 163/94
== END 2019-06-16 10:26 | disposition home or self-care (01) ==
LOC: EMS 04:58
DX: H57.11 Ocular pain, right eye (principal); G89.18 Other acute postprocedural pain; E11.39 Type 2 diabetes mellitus with other diabetic ophthalmic complication; H40.9 Unspecified glaucoma; I10 Essential (primary) hypertension; Z99.2 Dependence on renal dialysis; Z79.899 Other long term (current) drug therapy; Z79.82 Long term (current) use of aspirin; Z98.890 Other specified postprocedural states

== ENCOUNTER 2019-06-21 16:50 | Emergency (ER) | payer OTHER ==
[~2019-06-21] VITALS: Ht 180.3 cm; Wt 90.9 kg
[~2019-06-21 16:50] MED LIST changes: +ASPI-1182 PO; +SEVE800T27 PO; +TAMS-13 PO; +VIT1CAPS26 PO
[2019-06-21] MEDS ORDERED: ISON300 PO (18:03)
[2019-06-21] MEDS ORDERED: NIFE30TA5 PO (18:03)
[2019-06-21] MEDS ORDERED: VALS160T2 PO (18:03)
[2019-06-21] MEDS ORDERED: B CO1CAP6 PO (18:03)
[2019-06-21] MEDS ORDERED: DOCU-275 PO (18:03)
[2019-06-21] MEDS ORDERED: PROPARACAINE HCL 0.5% 15 ML OPHTHALMIC SOLUTION OU ONE (19:00)
[2019-06-21] MEDS ORDERED: FLUORESCEIN SODIUM 1 MG STRIP OD ONE (19:00)
[2019-06-21 20:03] LABS: BASOPHILS % (AUTO) 0.9 % (0.0-2.0); EOSINOPHILS % (AUTO) 5.8 % (1.0-6.0); HEMATOCRIT 37.9 % (41-53); HEMOGLOBIN 12.3 g/dL (13.5-17.5); LYMPHOCYTES # (AUTO) 1.3 K/uL (1.0-4.8); LYMPHOCYTES % (AUTO) 24.8 % (22.0-44.0); MEAN CORPUSCULAR HEMOGLOBIN 28.2 pg (26.0-34.0); MEAN CORPUSCULAR HGB CONC 32.4 G/dL (31.0-37.0); MEAN CORPUSCULAR VOLUME 87 fL (80-100); MONOCYTES # (AUTO) 0.7 K/uL (0.1-1.0); MONOCYTES % (AUTO) 14.5 % (2.0-9.0); NEUTROPHILS # (AUTO) 2.7 K/uL (1.8-7.7); PLATELET COUNT (AUTO) 222 K/uL (150-450); RED BLOOD CELL COUNT(AUTO) 4.34 MIL/uL (4.50-5.90); RED CELL DISTRIBUTION WIDTH 14.2 % (11.5-14.5)
[2019-06-21 20:15] LABS: CALCIUM, TOTAL 8.6 mg/dL (8.8-10.5); CREATININE 5.56 mg/dL (0.60-1.30); POTASSIUM 3.2 mmol/L (3.5-5.1)
[2019-06-21] MEDS ORDERED: BRIMONIDINE TARTRATE 0.2% 5 ML OPHTHALMIC SOLUTION OD ONE (20:15)
[2019-06-21] MEDS ORDERED: AcetaZOLAMIDE 250 MG TABLET PO ONE (20:15)
[2019-06-21 20:20] LABS: ALBUMIN 3.9 g/dL (3.4-5.0); BILIRUBIN,TOTAL 0.5 mg/dL (0.1-1.0)
[2019-06-21] MEDS ORDERED: OxyCODONE HCL 5 MG IR TABLET PO ONE ×2 (20:45→22:45)
[2019-06-21 21:20] VITALS: BP 152/79
[2019-06-21] MEDS ORDERED: ACETAMINOPHEN 325 MG TABLET PO ONE (22:15)
== END 2019-06-22 01:34 | disposition home or self-care (01) ==
LOC: EMS 16:52
DX: G89.18 Other acute postprocedural pain (principal); H57.11 Ocular pain, right eye; E11.39 Type 2 diabetes mellitus with other diabetic ophthalmic complication; H40.20X0 Unspecified primary angle-closure glaucoma, stage unspecified; E11.22 Type 2 diabetes mellitus with diabetic chronic kidney disease; I12.0 Hypertensive chronic kidney disease with stage 5 chronic kidney disease or end stage renal disease; N18.6 End stage renal disease; Z99.2 Dependence on renal dialysis; Z79.899 Other long term (current) drug therapy; Z79.82 Long term (current) use of aspirin

== ENCOUNTER 2020-06-15 05:47 | Day surgery (SDC) | payer OTHER ==
[2020-06-13 09:41] LABS: COVID AG,FIA SOURCE NASOPHARYNGEAL
[~2020-06-15] VITALS: Ht 182.9 cm; Wt 87.3 kg
[~2020-06-15 05:47] MED LIST changes: -ASPI-1182 PO; +B CO1CAP6 PO; +DOCU-275 PO; -HYDR-2924 PO; +ISON300 PO; -LOSA50TA64 PO; +NIFE30TA5 PO; +PANT-31 PO; -PANT40TA25 PO; +VALS160T2 PO
[2020-06-15] MEDS ORDERED: MOXIFLOXACIN HCL 0.5% 3 ML OPHTHALMIC SOLUTION ONE (05:59)
[2020-06-15] MEDS ORDERED: PHENYLEPHRINE HCL 2.5% 2 ML OPHTHALMIC SOLUTION ONE (05:59)
[2020-06-15] MEDS ORDERED: TROPICAMIDE 1% 2 ML OPHTHALMIC SOLUTION ONE (05:59)
[2020-06-15] MEDS ORDERED: KETOROLAC TROMETHAMINE 0.5% 5 ML OPHTHALMIC SOLUTION ONE (05:59)
[2020-06-15] MEDS: KETOROLAC TROMETHAMINE 0.5% 5 ML OPHTHALMIC SOLUTION OD SCH ×3 (06:33→06:46)
[2020-06-15] MEDS: MOXIFLOXACIN HCL 0.5% 3 ML OPHTHALMIC SOLUTION OD SCH ×3 (06:34→06:46)
[2020-06-15] MEDS: PHENYLEPHRINE HCL 2.5% 2 ML OPHTHALMIC SOLUTION OD SCH ×3 (06:34→06:46)
[2020-06-15] MEDS: TROPICAMIDE 1% 2 ML OPHTHALMIC SOLUTION OD SCH ×3 (06:34→06:45)
[2020-06-15] MEDS ORDERED: SODIUM CHLORIDE 0.9% 500 ML IV ONE (08:30)
[2020-06-15] MEDS ORDERED: ATOR40TA28 PO (08:49)
[2020-06-15] MEDS ORDERED: TAMS-13 PO (08:49)
[2020-06-15] MEDS ORDERED: LOSA50TA37 PO (08:49)
[2020-06-15] MEDS ORDERED: TETRACAINE HCL/PF 0.5% 4 ML OPHTHALMIC SOLUTION ONE ×2 (09:25→18:28)
[2020-06-15] MEDS ORDERED: MIDAZOLAM HCL 2 MG/2 ML VIAL IVP ONE (12:00)
[2020-06-15] MEDS ORDERED: FentaNYL CITRATE-PF 100 MCG/2 ML VIAL IVP ONE (12:00)
[2020-06-15] MEDS ORDERED: HYALURONATE SODIUM 12 MG/ML 0.8 ML SYRINGE IO ONE (18:28)
[2020-06-15] MEDS ORDERED: EPINEPHrine 1:1,000 [1 MG/ML] AMP ONE (18:28)
[2020-06-15] MEDS ORDERED: POVIDONE-IODINE 10% 15 ML SOLUTION UD ONE (18:28)
[2020-06-15] MEDS ORDERED: LIDOCAINE/PF 1% 2 ML VIAL ONE (18:28)
[2020-06-15] MEDS ORDERED: HYALURONATE SOD/CHONDROITIN SOD 0.5 ML VIAL IO ONE (18:28)
== END 2020-06-15 11:20 | disposition home or self-care (01) ==
LOC: SURGERY 05:47
PROVIDERS: ATTEND Ophthalmology
DX: E11.36 Type 2 diabetes mellitus with diabetic cataract (principal); H25.11 Age-related nuclear cataract, right eye; E11.3513 Type 2 diabetes mellitus with proliferative diabetic retinopathy with macular edema, bilateral; E11.3591 Type 2 diabetes mellitus with proliferative diabetic retinopathy without macular edema, right eye; I10 Essential (primary) hypertension; E78.00 Pure hypercholesterolemia, unspecified; Z98.890 Other specified postprocedural states; Z20.828 Contact with and (suspected) exposure to other viral communicable diseases
CPT/HCPCS: 66984; 87426; 93005; C9803; J0171; J2250; J3010; J3490 ×2; V2632

== ENCOUNTER 2020-09-07 06:09 | Day surgery (SDC) | payer OTHER ==
[2020-09-05 10:28] LABS: COVID AG,FIA SOURCE NASOPHARYNGEAL
[~2020-09-07] VITALS: Ht 182.9 cm; Wt 86.8 kg
[~2020-09-07 06:09] MED LIST changes: +ATOR40TA28 PO; +HYDR50TA36 PO; -ISON300 PO; -ISOS30TA6 PO; +KETOROLAC TROMETHAMINE 0.5% 5 ML OPHTHALMIC SOLUTION ONE; -LABE100T8 PO; +LOSA50TA37 PO; +MOXIFLOXACIN HCL 0.5% 3 ML OPHTHALMIC SOLUTION ONE; -NIFE30TA5 PO; +PHENYLEPHRINE HCL 2.5% 2 ML OPHTHALMIC SOLUTION ONE; -PYRI50TA13 PO; +SODIUM CHLORIDE 0.9% 500 ML IV ONE; +TROPICAMIDE 1% 2 ML OPHTHALMIC SOLUTION ONE; -VALS160T2 PO
[2020-09-07] MEDS ORDERED: FentaNYL CITRATE PF 100 MCG/2 ML VIAL IVP ONE (06:10)
[2020-09-07] MEDS ORDERED: LIDOCAINE/PF 1% 2 ML VIAL IM ONE (06:10)
[2020-09-07] MEDS ORDERED: TETRACAINE HCL/PF 0.5% 4 ML OPHTHALMIC SOLUTION OU ONE (06:10)
[2020-09-07] MEDS ORDERED: MIDAZOLAM HCL 2 MG/2 ML VIAL IVP ONE (06:10)
[2020-09-07] MEDS ORDERED: HYALURONATE SODIUM 12 MG/ML 0.8 ML SYRINGE IO ONE (06:10)
[2020-09-07] MEDS ORDERED: POVIDONE-IODINE 10% 15 ML SOLUTION UD TP ONE (06:10)
[2020-09-07] MEDS ORDERED: BALANCED SALT 15 ML OPHTHALMIC IRRIG.SOLN IO ONE (06:10)
[2020-09-07] MEDS ORDERED: HYALURONATE SOD/CHONDROITIN SOD 0.5 ML VIAL IO ONE (06:10)
[2020-09-07] MEDS ORDERED: EPINEPHrine 1:1,000 [1 MG/ML] AMP IM ONE (06:10)
[2020-09-07] MEDS: PHENYLEPHRINE HCL 2.5% 2 ML OPHTHALMIC SOLUTION OS SCH ×3 (06:56→07:10)
[2020-09-07] MEDS: KETOROLAC TROMETHAMINE 0.5% 5 ML OPHTHALMIC SOLUTION OS SCH ×3 (06:56→07:09)
[2020-09-07] MEDS: TROPICAMIDE 1% 2 ML OPHTHALMIC SOLUTION OS SCH ×3 (06:56→07:09)
[2020-09-07] MEDS: MOXIFLOXACIN HCL 0.5% 3 ML OPHTHALMIC SOLUTION OS SCH ×3 (06:56→07:10)
[2020-09-07] MEDS ORDERED: SODIUM CHLORIDE 0.9% 500 ML IV ONE (07:00)
== END 2020-09-07 10:55 | disposition home or self-care (01) ==
LOC: SURGERY 06:09
PROVIDERS: ATTEND Ophthalmology
DX: E11.36 Type 2 diabetes mellitus with diabetic cataract (principal); H25.12 Age-related nuclear cataract, left eye; E66.3 Overweight; N18.6 End stage renal disease; I12.0 Hypertensive chronic kidney disease with stage 5 chronic kidney disease or end stage renal disease; E78.00 Pure hypercholesterolemia, unspecified; E11.3591 Type 2 diabetes mellitus with proliferative diabetic retinopathy without macular edema, right eye; E11.3513 Type 2 diabetes mellitus with proliferative diabetic retinopathy with macular edema, bilateral; E11.22 Type 2 diabetes mellitus with diabetic chronic kidney disease; Z79.899 Other long term (current) drug therapy; Z98.890 Other specified postprocedural states
CPT/HCPCS: 66984; 87426; 93005; C9803; J0171; J2250; J3010; J3490 ×2; J7040; V2632

== ENCOUNTER 2024-07-05 16:01 | Emergency (ER) | payer OTHER, MEDICAID ==
[~2024-07-05] VITALS: Ht 182.9 cm; Wt 97.0 kg
[~2024-07-05 16:01] MED LIST changes: -DOCU-275 PO; +DOCU-385 PO; -KETOROLAC TROMETHAMINE 0.5% 5 ML OPHTHALMIC SOLUTION ONE; +LOSA-382 PO; -LOSA50TA37 PO; -MOXIFLOXACIN HCL 0.5% 3 ML OPHTHALMIC SOLUTION ONE; -PHENYLEPHRINE HCL 2.5% 2 ML OPHTHALMIC SOLUTION ONE; -SODIUM CHLORIDE 0.9% 500 ML IV ONE; -TAMS-13 PO; +TAMS0.4C94 PO; -TROPICAMIDE 1% 2 ML OPHTHALMIC SOLUTION ONE
[2024-07-05 16:25] VITALS: BP 186/97; PULSE 97; RESP 16; TEMP 98.8; O2SAT 98
== END 2024-07-05 18:36 | disposition left against medical advice (07) ==
LOC: EMS 16:01
DX: K59.00 Constipation, unspecified (principal); R55 Syncope and collapse; Z53.21 Procedure and treatment not carried out due to patient leaving prior to being seen by health care provider
CPT/HCPCS: 93005